=== PATIENT | female | born 1970 | race Caucasian/White ===

== ENCOUNTER 2023-12-19 09:03 | Inpatient (IN) | payer BC, MEDICAID ==
[~2023-12-19] VITALS: Ht 162.6 cm; Wt 75.0 kg
[2023-12-19] MEDS ORDERED: octreotide inj. 1,250 MCG in normal saline 250ml IV soln 243.75 ML IV SCH (09:50)
[2023-12-19] MEDS ORDERED: octreotide inj. 1,250 MCG in normal saline 250ml IV soln 250 ML IV ONE (09:50)
[2023-12-19] MEDS ORDERED: pantoprazole 40mg IV 80 MG in normal saline 100ml IV soln 100 ML IV ONE (09:50)
[2023-12-19] MEDS: octreotide inj. 500 MCG in normal saline 100ml IV soln 97.5 ML IV SCH (09:55)
[2023-12-19 09:57] LABS: BASOPHILS # (AUTO) 0.1 X10'3 (0-0.2); BASOPHILS % (AUTO) 0.5 % (0-1); EOSINOPHILS # (AUTO) 0.1 X10'3 (0-0.9); EOSINOPHILS % (AUTO) 0.5 % (0-6); HEMATOCRIT 31.9 % (35.0-45.0); HEMOGLOBIN 10.5 g/dl (12.0-16.0); LYMPHOCYTES # (AUTO) 2.1 X10'3 (1.1-4.8); LYMPHOCYTES % (AUTO) 12.4 % (21-51); MEAN CORPUSCULAR HEMOGLOBIN 33.5 PG (27.0-31.0); MEAN CORPUSCULAR HGB CONC 32.9 g/dL (33.0-36.5); MEAN CORPUSCULAR VOLUME 101.9 FL (78-98); MEAN PLATELET VOLUME 10.5 FL (7.4-10.4); MONOCYTES # (AUTO) 1.4 X10'3 (0-0.9); MONOCYTES % (AUTO) 8.5 % (2-12); NEUTROPHILS # (AUTO) 13.2 X10'3 (1.8-7.7); NEUTROPHILS % (AUTO) 78.1 % (42-75); PLATELET COUNT 228 X10'3 (140-440); RED BLOOD COUNT 3.13 X10'6 (4.20-5.60); RED CELL DISTRIBUTION WIDTH 19.5 % (11.5-14.5); WHITE BLOOD COUNT 16.9 X10'3 (4.5-11.0)
[2023-12-19] MEDS ORDERED: iohexol 300mg/ml 100ml inj. ONE (10:13)
[2023-12-19] MEDS: normal saline 1000ml 1,000 ML IV ONE (10:16)
[2023-12-19] MEDS: pantoprazole 40MG/NS 100ML BAG 100 ML IV SCH ×2 (10:26→20:09)
[2023-12-19 10:29] LABS: ALANINE AMINOTRANSFERASE 44 U/L (12-78); ALBUMIN 2.3 G/DL (3.4-5.0); ALBUMIN/GLOBULIN RATIO 0.4 (1.1-1.5); ALKALINE PHOSPHATASE 287 IU/L (46-116); ANION GAP 13 (8-16); ASPARTATE AMINO TRANSFERASE 105 U/L (10-37); BILIRUBIN,TOTAL 3.9 MG/DL (0.1-1.0); BLOOD UREA NITROGEN 4 MG/DL (7-18); BUN/CREATININE RATIO 2.6 (10.0-20.0); CALCIUM 7.3 MG/DL (8.5-10.1); CHLORIDE 88 MMOL/L (99-107); CREATININE 1.53 MG/DL (0.40-0.90); GLUCOSE 165 MG/DL (70-104); LIPASE 19 U/L (16-77); SODIUM 124 MMOL/L (135-145); TOTAL CARBON DIOXIDE 22.8 MMOL/L (24-32); TOTAL PROTEIN 8.5 G/DL (6.4-8.2); eCRCL 38 ML/MIN; eGFR 36 ML/MIN
[2023-12-19 10:32] LABS: POTASSIUM 2.4 MMOL/L (3.5-5.1)
[2023-12-19 11:04] LABS: URINE HCG NEGATIVE (NEG)
[2023-12-19 11:04] LABS: OCCULT BLOOD STOOL NEGATIVE (Neg)
[2023-12-19 11:06] LABS: BILIRUBIN,URINE SMALL (Neg); CLARITY,URINE SLIGHTLY CLOUDY (Clear); COLOR,URINE YELLOW (Yellow); GLUCOSE, URINE NEGATIVE (Neg); KETONES,URINE NEGATIVE (Neg); LEUKOCYTE ESTERASE ,URINE MODERATE (Neg); NITRITES, URINE POSITIVE (Neg); OCCULT BLOOD,URINE TRACE-INTACT (Neg); PROTEIN,URINE NEGATIVE (Neg)
[2023-12-19 11:10] LABS: UA COLLECTION TYPE NON-SPECIFIED
[2023-12-19 11:15] LABS: BACTERIA,URINE 4+ /HPF (Neg); MUCUS STRANDS NONE SEEN /LPF (Neg); RBC,URINE 0-2 /HPF (0-2); SQUAMOUS EPITHELIAL CELL,UR MANY /LPF (FEW)
[2023-12-19 11:16] LABS: WBC,URINE 30-50 /HPF (0-4)
[2023-12-19] MEDS: thiamine 100mg tablet PO ONE (11:39)
[2023-12-19] MEDS: folic acid 1mg tablet PO ONE (11:39)
[2023-12-19] MEDS: potassium Cl 20 mEq SR tablet PO ONE (11:39)
[2023-12-19 11:41] LABS: MAGNESIUM 0.3 MG/DL (1.5-2.4)
[2023-12-19] MEDS: pantoprazole 40 MG vial IV ONE (11:41)
[2023-12-19] MEDS: CefTRIAXone 2gm/D5W 50ml BAG 50 ML IV ONE ×2 (11:54→12:24)
[2023-12-19] MEDS: cyanocobalamin 1,000 mcg/ml inj IM ONE (12:02)
[2023-12-19] MEDS: LORazepam 2 mg/ml vial IV ONE (12:32)
[2023-12-19] MEDS: magnesium sulf-water 4G/100mL 100 ML IV ONE (12:32)
[2023-12-19] MEDS ORDERED: potassium Cl 20 mEq SR tablet PO PRN (13:05)
[2023-12-19] MEDS ORDERED: morphine 2 MG/ML inj. syringe IV PRN ×2 (13:05)
[2023-12-19] MEDS ORDERED: potassium Cl 40MEQ/1/2NS 520ml 520 ML IV PRN (13:05)
[2023-12-19] MEDS ORDERED: magnesium Cl slow-release 64mg tablet PO PRN (13:05)
[2023-12-19] MEDS ORDERED: magnesium sulf-water 4G/100mL 100 ML IV PRN (13:05)
[2023-12-19] MEDS ORDERED: haloperidol lactate 5mg/ml inj IM PRN (13:20)
[2023-12-19] MEDS ORDERED: haloperidol 5mg tablet PO PRN (13:20)
[2023-12-19] MEDS: normal saline 1000ml 1,000 ML IV SCH (14:33)
[2023-12-19] MEDS: potassium Cl 20 mEq SR tablet PO PRN (16:38)
[2023-12-19] MEDS: acetaminophen 325mg tablet PO PRN (16:38)
[2023-12-19] MEDS: normal saline 500ml IV soln 500 ML IV ONE (16:39)
[2023-12-19] MEDS: atenolol 25mg tablet PO ONE (16:47)
[2023-12-19] MEDS: LORazepam 2 mg/ml vial IV PRN (16:48)
[2023-12-19] MEDS ORDERED: PANT20TA18 PO (17:09)
[2023-12-19] MEDS ORDERED: METF-438 PO (17:09)
[2023-12-19] MEDS ORDERED: INSU100I31 SQ (17:09)
[2023-12-19] MEDS ORDERED: PREG75CA76 PO (17:09)
[2023-12-19] MEDS ORDERED: DEXTROSE 15 GM of carb/4 tabs (each vial/BOTTLE has 4 tablets) PO PRN ×2 (18:55)
[2023-12-19] MEDS ORDERED: glucagon, human recombinant 1mg kit SUBCUT PRN (18:55)
[2023-12-19] MEDS: diltiazem-NS 100mg/100ml 100 ML IV SCH (18:55)
[2023-12-19] MEDS ORDERED: dextrose 50%-water 50ml dispensing syringe IV PRN ×2 (18:55)
[2023-12-19] MEDS: INSULIN LISPRO 100 UNIT/ML INSULN.PEN MULTI-DOSE SQ SCH (20:21)
[2023-12-19 22:30] VITALS: BP 128/80; PULSE 96; RESP 14; TEMP 97.1; O2SAT 98
[2023-12-20] VITALS (7 sets, daily range): BP systolic 92–127; BP diastolic 53–86; PULSE 88–100; RESP 16–24; TEMP 96.6–99.6; O2SAT 20–98
[2023-12-20 06:10] LABS: BASOPHILS % (AUTO) 0.3 % (0-1); EOSINOPHILS # (AUTO) 0.2 X10'3 (0-0.9); EOSINOPHILS % (AUTO) 1.1 % (0-6); HEMATOCRIT 28.6 % (35.0-45.0); HEMOGLOBIN 9.3 g/dl (12.0-16.0); LYMPHOCYTES # (AUTO) 1.3 X10'3 (1.1-4.8); LYMPHOCYTES % (AUTO) 9.5 % (21-51); MEAN CORPUSCULAR HEMOGLOBIN 33.4 PG (27.0-31.0); MEAN CORPUSCULAR HGB CONC 32.4 g/dL (33.0-36.5); MEAN CORPUSCULAR VOLUME 103.3 FL (78-98); MEAN PLATELET VOLUME 10.5 FL (7.4-10.4); MONOCYTES # (AUTO) 1.1 X10'3 (0-0.9); MONOCYTES % (AUTO) 7.8 % (2-12); NEUTROPHILS # (AUTO) 11.5 X10'3 (1.8-7.7); NEUTROPHILS % (AUTO) 81.3 % (42-75); PLATELET COUNT 204 X10'3 (140-440); RED BLOOD COUNT 2.77 X10'6 (4.20-5.60); RED CELL DISTRIBUTION WIDTH 19.6 % (11.5-14.5); WHITE BLOOD COUNT 14.2 X10'3 (4.5-11.0)
[2023-12-20 06:11] LABS: INR 1.5 INR; PROTHROMBIN TIME 15.1 SECONDS (9.0-12.0)
[2023-12-20 06:19] LABS: ALANINE AMINOTRANSFERASE 37 U/L (12-78); ALBUMIN 1.8 G/DL (3.4-5.0); ALBUMIN/GLOBULIN RATIO 0.4 (1.1-1.5); ALKALINE PHOSPHATASE 218 IU/L (46-116); ANION GAP 10 (8-16); ASPARTATE AMINO TRANSFERASE 110 U/L (10-37); BILIRUBIN,TOTAL 3.3 MG/DL (0.1-1.0); BLOOD UREA NITROGEN 4 MG/DL (7-18); BUN/CREATININE RATIO 4.3 (10.0-20.0); CALCIUM 6.8 MG/DL (8.5-10.1); CHLORIDE 103 MMOL/L (99-107); CREATININE 0.92 MG/DL (0.40-0.90); GLUCOSE 108 MG/DL (70-104); MAGNESIUM 1.3 MG/DL (1.5-2.4); SODIUM 137 MMOL/L (135-145); TOTAL CARBON DIOXIDE 24.4 MMOL/L (24-32); TOTAL PROTEIN 6.8 G/DL (6.4-8.2); eCRCL 62 ML/MIN; eGFR 64 ML/MIN
[2023-12-20 06:58] LABS: OCCULT BLOOD STOOL NEGATIVE (Neg)
[2023-12-20 08:24] LABS: PLATELET ESTIMATE NORMAL
[2023-12-20 08:25] LABS: ANISOCYTOSIS 2+; POLYCHROMASIA FEW
[2023-12-20 08:26] LABS: TARGET CELLS 2+
[2023-12-20 08:33] LABS: C DIFF ANTIGEN NEGATIVE (NEGATIVE); C DIFF SPECIMEN=DIARRHEA? ACCEPTABLE; C DIFFICILE TOXINS A&B NEGATIVE (Neg)
[2023-12-20] MEDS: CefTRIAXone 2gm/D5W 50ml BAG 50 ML IV SCH (08:49)
[2023-12-20] MEDS: atenolol 25mg tablet PO SCH (08:50)
[2023-12-20] MEDS: magnesium sulf-water 2g/50mL 50 ML IV PRN (09:53)
[2023-12-20] MEDS: sodium phosphate inj. 30 MMOL in dextrose 5%-water 250 ML IV ONE (12:07)
[2023-12-20 15:18] LABS: BASOPHILS # (AUTO) 0.1 X10'3 (0-0.2); BASOPHILS % (AUTO) 0.6 % (0-1); EOSINOPHILS # (AUTO) 0.2 X10'3 (0-0.9); EOSINOPHILS % (AUTO) 1.1 % (0-6); HEMATOCRIT 28.6 % (35.0-45.0); HEMOGLOBIN 9.3 g/dl (12.0-16.0); LYMPHOCYTES # (AUTO) 1.3 X10'3 (1.1-4.8); LYMPHOCYTES % (AUTO) 9.7 % (21-51); MEAN CORPUSCULAR HEMOGLOBIN 33.6 PG (27.0-31.0); MEAN CORPUSCULAR HGB CONC 32.4 g/dL (33.0-36.5); MEAN CORPUSCULAR VOLUME 103.7 FL (78-98); MEAN PLATELET VOLUME 10.2 FL (7.4-10.4); MONOCYTES # (AUTO) 0.9 X10'3 (0-0.9); NEUTROPHILS % (AUTO) 81.6 % (42-75); PLATELET COUNT 219 X10'3 (140-440); RED BLOOD COUNT 2.76 X10'6 (4.20-5.60); RED CELL DISTRIBUTION WIDTH 19.5 % (11.5-14.5); WHITE BLOOD COUNT 13.5 X10'3 (4.5-11.0)
[2023-12-20 15:46] LABS: ANISOCYTOSIS 2+; PLATELET ESTIMATE NORMAL; POLYCHROMASIA FEW; TARGET CELLS 1+; TOTAL CELLS COUNTED 100
[2023-12-20] MEDS: loperamide 2mg capsule PO PRN (17:21)
[2023-12-20 18:30] LABS: OCCULT BLOOD STOOL NEGATIVE (Neg)
[2023-12-20] MEDS: heparin, porcine 5000 units/ml vial SQ SCH (21:57)
[2023-12-20] MEDS: ciprofloxacin lact 400MG/200ML 200 ML IV SCH (22:28)
[2023-12-20] MEDS: metroNIDAZOLE-Flagyl 500mg/NS 100 ML IV SCH (23:55)
[2023-12-21] VITALS (7 sets, daily range): BP systolic 80–120; BP diastolic 48–81; PULSE 88–124; RESP 14–27; TEMP 97.5–103.9; O2SAT 95–98
[2023-12-21 06:17] LABS: INR 1.5 INR; PROTHROMBIN TIME 15.6 SECONDS (9.0-12.0)
[2023-12-21 06:19] LABS: ALANINE AMINOTRANSFERASE 36 U/L (12-78); ALBUMIN 1.6 G/DL (3.4-5.0); ALBUMIN/GLOBULIN RATIO 0.3 (1.1-1.5); ALKALINE PHOSPHATASE 204 IU/L (46-116); ANION GAP 11 (8-16); ASPARTATE AMINO TRANSFERASE 90 U/L (10-37); BILIRUBIN,TOTAL 2.9 MG/DL (0.1-1.0); BLOOD UREA NITROGEN 4 MG/DL (7-18); BUN/CREATININE RATIO 4.7 (10.0-20.0); CALCIUM 6.4 MG/DL (8.5-10.1); CHLORIDE 105 MMOL/L (99-107); CREATININE 0.85 MG/DL (0.40-0.90); GLUCOSE 93 MG/DL (70-104); MAGNESIUM 1.4 MG/DL (1.5-2.4); PHOSPHORUS 3.2 MG/DL (2.3-4.5); POTASSIUM 4.1 MMOL/L (3.5-5.1); SODIUM 139 MMOL/L (135-145); TOTAL CARBON DIOXIDE 22.9 MMOL/L (24-32); TOTAL PROTEIN 6.5 G/DL (6.4-8.2); eCRCL 68 ML/MIN; eGFR 71 ML/MIN
[2023-12-21 06:24] LABS: BASOPHILS # (AUTO) 0.1 X10'3 (0-0.2); BASOPHILS % (AUTO) 0.6 % (0-1); EOSINOPHILS # (AUTO) 0.2 X10'3 (0-0.9); EOSINOPHILS % (AUTO) 1.5 % (0-6); HEMATOCRIT 29.1 % (35.0-45.0); HEMOGLOBIN 9.3 g/dl (12.0-16.0); LYMPHOCYTES # (AUTO) 1.1 X10'3 (1.1-4.8); LYMPHOCYTES % (AUTO) 8.5 % (21-51); MEAN CORPUSCULAR HEMOGLOBIN 33.9 PG (27.0-31.0); MEAN PLATELET VOLUME 10.3 FL (7.4-10.4); MONOCYTES # (AUTO) 0.7 X10'3 (0-0.9); MONOCYTES % (AUTO) 5.4 % (2-12); NEUTROPHILS # (AUTO) 10.9 X10'3 (1.8-7.7); PLATELET COUNT 207 X10'3 (140-440); RED BLOOD COUNT 2.74 X10'6 (4.20-5.60); RED CELL DISTRIBUTION WIDTH 20.1 % (11.5-14.5)
[2023-12-21 07:27] LABS: HBSAG SCREEN Negative (Negative); HEP B CORE AB, IGM Negative (Negative); HEP B CORE AB, TOT Negative (Negative)
[2023-12-21] MEDS ORDERED: calcium chloride 100 MG/1 ML inj IV ONE (09:55)
[2023-12-21] MEDS: calcium chloride 1,000 MG in NS 100ml IV soln (110ml) IV ONE (13:12)
[2023-12-21] MEDS: lactulose 20gm/30ml cup PO SCH (14:41)
[2023-12-21 15:30] LABS: BASOPHILS # (AUTO) 0.1 X10'3 (0-0.2); BASOPHILS % (AUTO) 0.4 % (0-1); EOSINOPHILS # (AUTO) 0.1 X10'3 (0-0.9); HEMOGLOBIN 8.7 g/dl (12.0-16.0); MEAN CORPUSCULAR HEMOGLOBIN 33.6 PG (27.0-31.0); MEAN CORPUSCULAR HGB CONC 32.2 g/dL (33.0-36.5); WHITE BLOOD COUNT 14.6 X10'3 (4.5-11.0)
[2023-12-21 15:31] LABS: EOSINOPHILS % (AUTO) 0.7 % (0-6); LYMPHOCYTES % (AUTO) 13.7 % (21-51); MEAN CORPUSCULAR VOLUME 104.4 FL (78-98); MEAN PLATELET VOLUME 9.9 FL (7.4-10.4); MONOCYTES # (AUTO) 1.1 X10'3 (0-0.9); MONOCYTES % (AUTO) 7.5 % (2-12); NEUTROPHILS # (AUTO) 11.3 X10'3 (1.8-7.7); NEUTROPHILS % (AUTO) 77.7 % (42-75); PLATELET COUNT 210 X10'3 (140-440); RED BLOOD COUNT 2.58 X10'6 (4.20-5.60); RED CELL DISTRIBUTION WIDTH 20.2 % (11.5-14.5)
[2023-12-21 15:50] LABS: BILIRUBIN,URINE SMALL (Neg); CLARITY,URINE CLEAR (Clear); COLOR,URINE YELLOW (Yellow); GLUCOSE, URINE NEGATIVE (Neg); KETONES,URINE TRACE mg/dl (Neg); LEUKOCYTE ESTERASE ,URINE TRACE (Neg); NITRITES, URINE NEGATIVE (Neg); OCCULT BLOOD,URINE TRACE-INTACT (Neg); PROTEIN,URINE NEGATIVE (Neg); UROBILINOGEN,URINE 0.2 E.U/dL (0.2-1.0)
[2023-12-21 15:54] LABS: ANISOCYTOSIS 3+; PLATELET ESTIMATE NORMAL; TARGET CELLS 1+; TOTAL CELLS COUNTED 100
[2023-12-21 15:55] LABS: UA COLLECTION TYPE NON-SPECIFIED
[2023-12-21 15:56] LABS: BACTERIA,URINE NONE SEEN /HPF (Neg); WBC,URINE 0-4 /HPF (0-4)
[2023-12-21 15:57] LABS: MUCUS STRANDS FEW /LPF (Neg); RBC,URINE 0-2 /HPF (0-2); SQUAMOUS EPITHELIAL CELL,UR FEW /LPF (FEW); STARCH,URINE FEW /HPF (NEGATIVE)
[2023-12-21] MEDS: pregabalin 75mg capsule PO SCH (21:36)
[2023-12-22] VITALS (10 sets, daily range): BP systolic 87–134; BP diastolic 49–68; PULSE 94–117; RESP 20–29; TEMP 96.8–99.1; O2SAT 95–98
[2023-12-22] MEDS: normal saline 1000ml 1,000 ML IV ONE (00:28)
[2023-12-22] MEDS: pantoprazole 40 MG vial IV ONE (00:39)
[2023-12-22 07:16] LABS: BASOPHILS # (AUTO) 0.2 X10'3 (0-0.2); BASOPHILS % (AUTO) 1.1 % (0-1); EOSINOPHILS # (AUTO) 0.2 X10'3 (0-0.9); EOSINOPHILS % (AUTO) 1.2 % (0-6); HEMATOCRIT 28.3 % (35.0-45.0); HEMOGLOBIN 8.8 g/dl (12.0-16.0); LYMPHOCYTES # (AUTO) 1.4 X10'3 (1.1-4.8); LYMPHOCYTES % (AUTO) 9.5 % (21-51); MEAN CORPUSCULAR HEMOGLOBIN 33.5 PG (27.0-31.0); MEAN CORPUSCULAR HGB CONC 31.2 g/dL (33.0-36.5); MEAN CORPUSCULAR VOLUME 107.2 FL (78-98); MEAN PLATELET VOLUME 10.7 FL (7.4-10.4); MONOCYTES # (AUTO) 0.9 X10'3 (0-0.9); MONOCYTES % (AUTO) 6.5 % (2-12); NEUTROPHILS # (AUTO) 11.7 X10'3 (1.8-7.7); NEUTROPHILS % (AUTO) 81.7 % (42-75); PLATELET COUNT 207 X10'3 (140-440); RED BLOOD COUNT 2.64 X10'6 (4.20-5.60); WHITE BLOOD COUNT 14.3 X10'3 (4.5-11.0)
[2023-12-22 07:48] LABS: ALANINE AMINOTRANSFERASE 46 U/L (12-78); ALBUMIN 1.4 G/DL (3.4-5.0); ALKALINE PHOSPHATASE 176 IU/L (46-116); ANION GAP 16 (8-16); ASPARTATE AMINO TRANSFERASE 235 U/L (10-37); BILIRUBIN,TOTAL 4.1 MG/DL (0.1-1.0); BLOOD UREA NITROGEN 8 MG/DL (7-18); BUN/CREATININE RATIO 7.8 (10.0-20.0); CALCIUM 6.6 MG/DL (8.5-10.1); CHLORIDE 110 MMOL/L (99-107); CREATININE 1.02 MG/DL (0.40-0.90); GLUCOSE 130 MG/DL (70-104); POTASSIUM 3.7 MMOL/L (3.5-5.1); SODIUM 141 MMOL/L (135-145); eCRCL 56 ML/MIN; eGFR 57 ML/MIN
[2023-12-22 07:50] LABS: ALBUMIN/GLOBULIN RATIO 0.3 (1.1-1.5); TOTAL PROTEIN 5.9 G/DL (6.4-8.2)
[2023-12-22 07:53] LABS: TOTAL CARBON DIOXIDE 14.8 MMOL/L (24-32)
[2023-12-22 07:57] LABS: TOTAL CELLS COUNTED 100
[2023-12-22 07:58] LABS: ANISOCYTOSIS 2+; HYPOCHROMASIA 1+; LARGE PLATELETS FEW; PLATELET ESTIMATE NORMAL; POLYCHROMASIA 1+; ROULEAUX 1+; TARGET CELLS 2+
[2023-12-22] MEDS: pantoprazole 40mg Tablet.DR PO SCH (08:32)
[2023-12-22 09:03] LABS: ABG BASE EXCESS -8.9 mmol/L (-2.0-3.0); ABG OXYGEN SATURATION 95.7 % (94.0-98.0); ABG PCO2 (T) 21.3 mmHg (32.0-45.0); ABG PH (T) 7.433 (7.350-7.450); ABG PO2 (T) 77.2 mmHg (83.0-108.0); ALLEN'S TEST POSITIVE; FCOHb 0.7 % (0.5-1.5); FHHb 4.3 % (0.0-5.0); FMetHb 0.3 % (0.0-1.5); FO2Hb 94.7 % (94.0-98.0); MODE ROOM AIR; PATIENT TEMPERATURE 36.5; TOTAL HEMOGLOBIN 9.2 G/dl (12.0-16.0)
[2023-12-22] MEDS: folic acid 1mg tablet PO SCH (10:20)
[2023-12-22] MEDS: sodium bicarbonate (8.4%) inj. 100 MEQ in dextrose 5%-water 1,000 ML IV SCH (10:23)
[2023-12-22] MEDS: nicotine 21mg patch - 24 hr TD SCH (14:31)
[2023-12-22 15:21] LABS: EOSINOPHILS # (AUTO) 0.1 X10'3 (0-0.9); MEAN PLATELET VOLUME 9.9 FL (7.4-10.4); PLATELET COUNT 222 X10'3 (140-440); RED BLOOD COUNT 2.52 X10'6 (4.20-5.60); WHITE BLOOD COUNT 14.1 X10'3 (4.5-11.0)
[2023-12-22 15:22] LABS: BASOPHILS # (AUTO) 0.1 X10'3 (0-0.2); HEMOGLOBIN 8.7 g/dl (12.0-16.0); LYMPHOCYTES # (AUTO) 1.6 X10'3 (1.1-4.8); LYMPHOCYTES % (AUTO) 11.1 % (21-51); MEAN CORPUSCULAR HEMOGLOBIN 34.5 PG (27.0-31.0); MEAN CORPUSCULAR HGB CONC 32.2 g/dL (33.0-36.5); MEAN CORPUSCULAR VOLUME 107.1 FL (78-98); MONOCYTES # (AUTO) 0.8 X10'3 (0-0.9); MONOCYTES % (AUTO) 5.9 % (2-12); NEUTROPHILS # (AUTO) 11.4 X10'3 (1.8-7.7); RED CELL DISTRIBUTION WIDTH 19.8 % (11.5-14.5)
[2023-12-22 15:29] LABS: ALANINE AMINOTRANSFERASE 50 U/L (12-78); ALBUMIN 1.3 G/DL (3.4-5.0); ALBUMIN/GLOBULIN RATIO 0.3 (1.1-1.5); ALKALINE PHOSPHATASE 195 IU/L (46-116); ANION GAP 10 (8-16); ASPARTATE AMINO TRANSFERASE 248 U/L (10-37); BILIRUBIN,TOTAL 4.1 MG/DL (0.1-1.0); BLOOD UREA NITROGEN 7 MG/DL (7-18); BUN/CREATININE RATIO 6.6 (10.0-20.0); CALCIUM 6.2 MG/DL (8.5-10.1); CHLORIDE 106 MMOL/L (99-107); CREATININE 1.06 MG/DL (0.40-0.90); GLUCOSE 262 MG/DL (70-104); POTASSIUM 3.3 MMOL/L (3.5-5.1); SODIUM 136 MMOL/L (135-145); TOTAL CARBON DIOXIDE 20.4 MMOL/L (24-32); TOTAL PROTEIN 5.7 G/DL (6.4-8.2); eCRCL 54 ML/MIN; eGFR 55 ML/MIN
[2023-12-22] MEDS ORDERED: potassium Cl 20 mEq SR tablet PO PRN (17:30)
[2023-12-22] MEDS ORDERED: magnesium sulf-water 2g/50mL 50 ML IV PRN (17:30)
[2023-12-22] MEDS: thiamine 100mg tablet PO SCH (19:54)
[2023-12-22] MEDS: K and/or MAG REPLACEMENT MC SCH (20:00)
[2023-12-22] MEDS: potassium Cl 20 mEq SR tablet PO PRN (21:36)
[2023-12-22] MEDS: HYDROcodone/acetaminophen 10/325mg tab PO PRN (23:06)
[2023-12-23] VITALS (11 sets, daily range): BP systolic 91–100; BP diastolic 51–62; PULSE 74–118; RESP 14–24; TEMP 97–101; O2SAT 95–100
[2023-12-23] MEDS: ipratropium/albuterol 3ml nebule NEB PRN (04:35)
[2023-12-23 06:34] LABS: BASOPHILS # (AUTO) 0.1 X10'3 (0-0.2); BASOPHILS % (AUTO) 0.9 % (0-1); EOSINOPHILS # (AUTO) 0.1 X10'3 (0-0.9); EOSINOPHILS % (AUTO) 0.5 % (0-6); HEMOGLOBIN 8.8 g/dl (12.0-16.0); LYMPHOCYTES # (AUTO) 2.3 X10'3 (1.1-4.8); LYMPHOCYTES % (AUTO) 16.6 % (21-51); MEAN CORPUSCULAR HEMOGLOBIN 33.6 PG (27.0-31.0); MEAN CORPUSCULAR HGB CONC 31.6 g/dL (33.0-36.5); MEAN CORPUSCULAR VOLUME 106.3 FL (78-98); MONOCYTES # (AUTO) 0.8 X10'3 (0-0.9); MONOCYTES % (AUTO) 5.8 % (2-12); NEUTROPHILS # (AUTO) 10.6 X10'3 (1.8-7.7); NEUTROPHILS % (AUTO) 76.2 % (42-75); PLATELET COUNT 228 X10'3 (140-440); RED BLOOD COUNT 2.63 X10'6 (4.20-5.60); RED CELL DISTRIBUTION WIDTH 19.7 % (11.5-14.5); WHITE BLOOD COUNT 13.9 X10'3 (4.5-11.0)
[2023-12-23 07:08] LABS: ALANINE AMINOTRANSFERASE 47 U/L (12-78); ALBUMIN 1.3 G/DL (3.4-5.0); ALKALINE PHOSPHATASE 202 IU/L (46-116); ANION GAP 11 (8-16); ASPARTATE AMINO TRANSFERASE 201 U/L (10-37); BILIRUBIN,TOTAL 3.9 MG/DL (0.1-1.0); BLOOD UREA NITROGEN 5 MG/DL (7-18); BUN/CREATININE RATIO 5.4 (10.0-20.0); CHLORIDE 105 MMOL/L (99-107); CREATININE 0.93 MG/DL (0.40-0.90); GLUCOSE 288 MG/DL (70-104); POTASSIUM 3.1 MMOL/L (3.5-5.1); SODIUM 137 MMOL/L (135-145); eCRCL 62 ML/MIN; eGFR 64 ML/MIN
[2023-12-23 07:09] LABS: ALBUMIN/GLOBULIN RATIO 0.3 (1.1-1.5); PHOSPHORUS 1.8 MG/DL (2.3-4.5); TOTAL PROTEIN 5.5 G/DL (6.4-8.2)
[2023-12-23 07:13] LABS: CALCIUM 5.8 MG/DL (8.5-10.1); MAGNESIUM 0.9 MG/DL (1.5-2.4)
[2023-12-23] MEDS ORDERED: calcium chloride 100 MG/1 ML inj IV ONE (07:55)
[2023-12-23] MEDS: lactulose 20gm/30ml cup PO SCH (08:00)
[2023-12-23] MEDS: multivitamins, therapeutics tablet PO SCH (09:16)
[2023-12-23] MEDS ORDERED: INSULIN LISPRO 100 UNIT/ML INSULN.PEN MULTI-DOSE SQ SCH (11:05)
[2023-12-23] MEDS: magnesium sulf-water 4G/100mL 100 ML IV PRN (14:02)
[2023-12-23] MEDS: CALCIUM GLUC 1gm/50ml NACL,iso 50 ML IV ONE (16:30)
[2023-12-23] MEDS: acetaminophen 325mg tablet PO PRN (16:48)
[2023-12-23 17:41] LABS: BASOPHILS # (AUTO) 0.1 X10'3 (0-0.2); BASOPHILS % (AUTO) 0.8 % (0-1); EOSINOPHILS # (AUTO) 0.1 X10'3 (0-0.9); EOSINOPHILS % (AUTO) 0.7 % (0-6); HEMATOCRIT 27.7 % (35.0-45.0); HEMOGLOBIN 8.8 g/dl (12.0-16.0); LYMPHOCYTES # (AUTO) 1.3 X10'3 (1.1-4.8); LYMPHOCYTES % (AUTO) 11.4 % (21-51); MEAN CORPUSCULAR HEMOGLOBIN 33.7 PG (27.0-31.0); MEAN CORPUSCULAR HGB CONC 31.8 g/dL (33.0-36.5); MEAN PLATELET VOLUME 9.8 FL (7.4-10.4); MONOCYTES # (AUTO) 0.7 X10'3 (0-0.9); MONOCYTES % (AUTO) 6.8 % (2-12); NEUTROPHILS # (AUTO) 8.9 X10'3 (1.8-7.7); NEUTROPHILS % (AUTO) 80.3 % (42-75); PLATELET COUNT 235 X10'3 (140-440); RED BLOOD COUNT 2.61 X10'6 (4.20-5.60); RED CELL DISTRIBUTION WIDTH 18.9 % (11.5-14.5)
[2023-12-23 18:13] LABS: ANISOCYTOSIS 2+; PLATELET ESTIMATE NORMAL
[2023-12-23 18:14] LABS: POLYCHROMASIA FEW; TARGET CELLS 1+
[2023-12-23] MEDS: INSULIN LISPRO 100 UNIT/ML INSULN.PEN MULTI-DOSE SQ SCH (21:58)
[2023-12-23] MEDS: sodium phosphate inj. 30 MMOL in dextrose 5%-water 250 ML IV ONE (22:27)
[2023-12-24] VITALS (9 sets, daily range): BP systolic 82–97; BP diastolic 52–65; PULSE 69–128; RESP 12–24; TEMP 97.3–100.1; O2SAT 95–98
[2023-12-24] MEDS: magnesium sulf-water 2g/50mL 50 ML IV ONE (09:13)
[2023-12-24] MEDS: CALCIUM GLUC 1gm/50ml NACL,iso 50 ML IV ONE (09:14)
[2023-12-24] MEDS: albuterol 2.5 MG/3 ML nebule NEB PRN (09:41)
[2023-12-24 10:56] LABS: BASOPHILS # (AUTO) 0.1 X10'3 (0-0.2); BASOPHILS % (AUTO) 0.8 % (0-1); EOSINOPHILS # (AUTO) 0.1 X10'3 (0-0.9); EOSINOPHILS % (AUTO) 0.7 % (0-6); HEMATOCRIT 29.2 % (35.0-45.0); HEMOGLOBIN 9.3 g/dl (12.0-16.0); LYMPHOCYTES # (AUTO) 2.4 X10'3 (1.1-4.8); LYMPHOCYTES % (AUTO) 17.7 % (21-51); MEAN CORPUSCULAR HEMOGLOBIN 33.8 PG (27.0-31.0); MEAN CORPUSCULAR VOLUME 105.8 FL (78-98); MEAN PLATELET VOLUME 10.5 FL (7.4-10.4); MONOCYTES # (AUTO) 0.9 X10'3 (0-0.9); MONOCYTES % (AUTO) 6.8 % (2-12); NEUTROPHILS # (AUTO) 9.8 X10'3 (1.8-7.7); PLATELET COUNT 219 X10'3 (140-440); RED BLOOD COUNT 2.76 X10'6 (4.20-5.60); RED CELL DISTRIBUTION WIDTH 18.8 % (11.5-14.5); WHITE BLOOD COUNT 13.3 X10'3 (4.5-11.0)
[2023-12-24 11:33] LABS: ALANINE AMINOTRANSFERASE 36 U/L (12-78); ALBUMIN 1.1 G/DL (3.4-5.0); ALKALINE PHOSPHATASE 201 IU/L (46-116); ANION GAP 12 (8-16); BILIRUBIN,TOTAL 4.1 MG/DL (0.1-1.0); BLOOD UREA NITROGEN 3 MG/DL (7-18); BUN/CREATININE RATIO 4.1 (10.0-20.0); CHLORIDE 98 MMOL/L (99-107); CREATININE 0.74 MG/DL (0.40-0.90); GLUCOSE 273 MG/DL (70-104); MAGNESIUM 1.3 MG/DL (1.5-2.4); SODIUM 130 MMOL/L (135-145); TOTAL CARBON DIOXIDE 20.3 MMOL/L (24-32); eCRCL 78 ML/MIN; eGFR 83 ML/MIN
[2023-12-24 11:34] LABS: CALCIUM 5.8 MG/DL (8.5-10.1); TOTAL CELLS COUNTED 100
[2023-12-24 11:36] LABS: ANISOCYTOSIS 2+; PLATELET ESTIMATE NORMAL; TARGET CELLS FEW
[2023-12-24 11:42] LABS: ALBUMIN/GLOBULIN RATIO 0.3 (1.1-1.5); ASPARTATE AMINO TRANSFERASE 153 U/L (10-37); PHOSPHORUS 2.5 MG/DL (2.3-4.5); POTASSIUM 3.6 MMOL/L (3.5-5.1); TOTAL PROTEIN 5.5 G/DL (6.4-8.2)
[2023-12-24 15:33] LABS: HEMATOCRIT 31.5 % (35.0-45.0); MEAN CORPUSCULAR HEMOGLOBIN 33.4 PG (27.0-31.0); MEAN CORPUSCULAR HGB CONC 31.8 g/dL (33.0-36.5); MEAN CORPUSCULAR VOLUME 105.1 FL (78-98); MEAN PLATELET VOLUME 10.3 FL (7.4-10.4); PLATELET COUNT 230 X10'3 (140-440); RED CELL DISTRIBUTION WIDTH 18.5 % (11.5-14.5); WHITE BLOOD COUNT 14.3 X10'3 (4.5-11.0)
[2023-12-24 16:11] LABS: TOTAL CELLS COUNTED 100
[2023-12-24 16:15] LABS: PLATELET ESTIMATE NORMAL
[2023-12-24 16:16] LABS: ANISOCYTOSIS 2+; POIKILOCYTOSIS 1+
[2023-12-24 16:17] LABS: TARGET CELLS 1+
[2023-12-24 16:18] LABS: CREATINE KINASE 73 U/L (26-192)
[2023-12-24 16:19] LABS: POLYCHROMASIA FEW
[2023-12-24] MEDS: calcium chloride inj. 1,000 MG in normal saline 100ml IV soln 100 ML IV ONE (19:03)
[2023-12-24] MEDS: INSULIN LISPRO 100 UNIT/ML INSULN.PEN MULTI-DOSE SQ SCH (20:38)
[2023-12-24] MEDS: insulin glargine (Lantus) pen - multi-dose SQ SCH (20:40)
[2023-12-25] VITALS (9 sets, daily range): BP systolic 95–104; BP diastolic 51–64; PULSE 96–111; RESP 16–22; TEMP 97–98.6; O2SAT 90–99
[2023-12-25] MEDS: ondansetron/PF 4mg/2ml inj IV PRN (03:02)
[2023-12-25 07:13] LABS: MAGNESIUM 1.6 MG/DL (1.5-2.4); PHOSPHORUS 2.6 MG/DL (2.3-4.5)
[2023-12-25 08:38] LABS: ALANINE AMINOTRANSFERASE 29 U/L (12-78); ALBUMIN/GLOBULIN RATIO 0.2 (1.1-1.5); ALKALINE PHOSPHATASE 193 IU/L (46-116); ANION GAP 8 (8-16); ASPARTATE AMINO TRANSFERASE 125 U/L (10-37); BILIRUBIN,TOTAL 3.5 MG/DL (0.1-1.0); BLOOD UREA NITROGEN 3 MG/DL (7-18); BUN/CREATININE RATIO 3.3 (10.0-20.0); CALCIUM 6.1 MG/DL (8.5-10.1); CHLORIDE 96 MMOL/L (99-107); CREATININE 0.92 MG/DL (0.40-0.90); GLUCOSE 215 MG/DL (70-104); SODIUM 131 MMOL/L (135-145); TOTAL CARBON DIOXIDE 27.1 MMOL/L (24-32); TOTAL PROTEIN 5.2 G/DL (6.4-8.2); eCRCL 62 ML/MIN; eGFR 64 ML/MIN
[2023-12-25 08:47] LABS: POTASSIUM 2.9 MMOL/L (3.5-5.1)
[2023-12-25 08:49] LABS: BASOPHILS % (AUTO) 0.3 % (0-1); EOSINOPHILS % (AUTO) 0.3 % (0-6); HEMATOCRIT 26.1 % (35.0-45.0); HEMOGLOBIN 8.7 g/dl (12.0-16.0); LYMPHOCYTES # (AUTO) 2.1 X10'3 (1.1-4.8); LYMPHOCYTES % (AUTO) 15.1 % (21-51); MEAN CORPUSCULAR HEMOGLOBIN 34.1 PG (27.0-31.0); MEAN CORPUSCULAR HGB CONC 33.1 g/dL (33.0-36.5); MEAN CORPUSCULAR VOLUME 102.9 FL (78-98); MEAN PLATELET VOLUME 9.9 FL (7.4-10.4); MONOCYTES # (AUTO) 0.9 X10'3 (0-0.9); MONOCYTES % (AUTO) 6.7 % (2-12); NEUTROPHILS # (AUTO) 10.9 X10'3 (1.8-7.7); NEUTROPHILS % (AUTO) 77.6 % (42-75); PLATELET COUNT 221 X10'3 (140-440); RED BLOOD COUNT 2.54 X10'6 (4.20-5.60); RED CELL DISTRIBUTION WIDTH 18.3 % (11.5-14.5)
[2023-12-25] MEDS ORDERED: potassium CL 10mEq/100ml bag 100 ML IV SCH (09:00)
[2023-12-25 09:27] LABS: MAGNESIUM 1.3 MG/DL (1.5-2.4)
[2023-12-25 10:00] LABS: ANISOCYTOSIS 2+; PLATELET ESTIMATE NORMAL; TOTAL CELLS COUNTED 100
[2023-12-25 10:01] LABS: TARGET CELLS 1+
[2023-12-25 10:02] LABS: POLYCHROMASIA FEW; STOMATOCYTES FEW
[2023-12-25] MEDS: potassium Cl 40MEQ/1/2NS 520ml 520 ML IV PRN (10:28)
[2023-12-25] MEDS: lactose-reduced food (Ensure Enlive) - 237ml bottle PO SCH (12:54)
[2023-12-25 19:03] LABS: BILIRUBIN,URINE LARGE (Neg); CLARITY,URINE CLOUDY (Clear); COLOR,URINE AMBER (Yellow); GLUCOSE, URINE NEGATIVE (Neg); KETONES,URINE NEGATIVE (Neg); LEUKOCYTE ESTERASE ,URINE NEGATIVE (Neg); OCCULT BLOOD,URINE NEGATIVE (Neg); PH,URINE 5.5 (4.8-8.0); PROTEIN,URINE TRACE mg/dl (Neg)
[2023-12-25 19:14] LABS: NITRITES, URINE NEGATIVE (Neg); UA COLLECTION TYPE NON-SPECIFIED
[2023-12-25 19:28] LABS: SQUAMOUS EPITHELIAL CELL,UR MANY /LPF (FEW)
[2023-12-25 19:30] LABS: BACTERIA,URINE FEW /HPF (Neg); RBC,URINE 0-2 /HPF (0-2); WBC,URINE 0-4 /HPF (0-4); YEAST FEW /HPF (NEGATIVE)
[2023-12-25] MEDS: spironolactone 50 MG tablet PO SCH (20:00)
[2023-12-25] MEDS: magnesium Cl slow-release 64mg tablet PO PRN (22:16)
[2023-12-25] MEDS: magnesium sulf-water 2g/50mL 50 ML IV ONE (22:17)
[2023-12-25] MEDS: calcium gluconate inj. 3 GM in normal saline 100ml IV soln 70 ML IV ONE (23:50)
[2023-12-26] VITALS (11 sets, daily range): BP systolic 101–118; BP diastolic 56–69; PULSE 68–113; RESP 13–20; TEMP 96.8–98.2; O2SAT 89–97
[2023-12-26 06:29] LABS: BASOPHILS # (AUTO) 0.1 X10'3 (0-0.2); BASOPHILS % (AUTO) 0.6 % (0-1); EOSINOPHILS % (AUTO) 0.2 % (0-6); HEMATOCRIT 28.4 % (35.0-45.0); HEMOGLOBIN 9.3 g/dl (12.0-16.0); LYMPHOCYTES # (AUTO) 3.2 X10'3 (1.1-4.8); LYMPHOCYTES % (AUTO) 14.5 % (21-51); MEAN CORPUSCULAR HEMOGLOBIN 33.9 PG (27.0-31.0); MEAN CORPUSCULAR HGB CONC 32.8 g/dL (33.0-36.5); MEAN CORPUSCULAR VOLUME 103.3 FL (78-98); MEAN PLATELET VOLUME 10.5 FL (7.4-10.4); MONOCYTES # (AUTO) 1.6 X10'3 (0-0.9); MONOCYTES % (AUTO) 7.2 % (2-12); NEUTROPHILS # (AUTO) 17.2 X10'3 (1.8-7.7); NEUTROPHILS % (AUTO) 77.5 % (42-75); PLATELET COUNT 244 X10'3 (140-440); RED BLOOD COUNT 2.75 X10'6 (4.20-5.60); WHITE BLOOD COUNT 22.2 X10'3 (4.5-11.0)
[2023-12-26 06:49] LABS: ALANINE AMINOTRANSFERASE 31 U/L (12-78); ALBUMIN 1.2 G/DL (3.4-5.0); ALKALINE PHOSPHATASE 231 IU/L (46-116); ANION GAP 5 (8-16); ASPARTATE AMINO TRANSFERASE 153 U/L (10-37); BILIRUBIN,TOTAL 4.6 MG/DL (0.1-1.0); BLOOD UREA NITROGEN 3 MG/DL (7-18); BUN/CREATININE RATIO 3.2 (10.0-20.0); CALCIUM 7.2 MG/DL (8.5-10.1); CHLORIDE 97 MMOL/L (99-107); CREATININE 0.94 MG/DL (0.40-0.90); GLUCOSE 133 MG/DL (70-104); POTASSIUM 4.1 MMOL/L (3.5-5.1); SODIUM 129 MMOL/L (135-145); TOTAL CARBON DIOXIDE 26.7 MMOL/L (24-32); eCRCL 61 ML/MIN; eGFR 63 ML/MIN
[2023-12-26 06:51] LABS: ALBUMIN/GLOBULIN RATIO 0.3 (1.1-1.5); PHOSPHORUS 2.7 MG/DL (2.3-4.5); TOTAL PROTEIN 5.8 G/DL (6.4-8.2)
[2023-12-26] MEDS ORDERED: calcium gluconate inj. 3 GM in normal saline 100ml IV soln 100 ML IV ONE (08:35)
[2023-12-26 10:28] LABS: OSMOLALITY 266 MOSM/K (280-300)
[2023-12-26] MEDS ORDERED: furosemide 40mg/4ml inj IV ONE (11:50)
[2023-12-26] MEDS: calcium chloride 1,000 MG in NS 100ml IV soln (110ml) IV ONE (12:35)
[2023-12-26] MEDS: albumin (human) 25% 100 ML IV solution IV ONE (14:23)
[2023-12-26] MEDS: furosemide 40mg/4ml inj IV ONE (19:03)
[2023-12-26] MEDS: calcium carbonate 500mg chew tablet PO ONE (21:35)
[2023-12-27] VITALS (9 sets, daily range): BP systolic 90–111; BP diastolic 50–64; PULSE 68–103; RESP 15–19; TEMP 97.6–98.6; O2SAT 89–100
[2023-12-27 07:46] LABS: BASOPHILS # (AUTO) 0.1 X10'3 (0-0.2); BASOPHILS % (AUTO) 0.2 % (0-1); EOSINOPHILS % (AUTO) 0.2 % (0-6); HEMATOCRIT 26.7 % (35.0-45.0); HEMOGLOBIN 8.7 g/dl (12.0-16.0); LYMPHOCYTES # (AUTO) 2.8 X10'3 (1.1-4.8); LYMPHOCYTES % (AUTO) 12.7 % (21-51); MEAN CORPUSCULAR HEMOGLOBIN 33.5 PG (27.0-31.0); MEAN CORPUSCULAR HGB CONC 32.5 g/dL (33.0-36.5); MEAN PLATELET VOLUME 10.7 FL (7.4-10.4); MONOCYTES # (AUTO) 1.1 X10'3 (0-0.9); MONOCYTES % (AUTO) 4.8 % (2-12); NEUTROPHILS % (AUTO) 82.1 % (42-75); PLATELET COUNT 254 X10'3 (140-440); RED BLOOD COUNT 2.59 X10'6 (4.20-5.60); RED CELL DISTRIBUTION WIDTH 17.8 % (11.5-14.5)
[2023-12-27 08:02] LABS: ALANINE AMINOTRANSFERASE 26 U/L (12-78); ALBUMIN 1.5 G/DL (3.4-5.0); ALKALINE PHOSPHATASE 240 IU/L (46-116); ANION GAP 7 (8-16); ASPARTATE AMINO TRANSFERASE 152 U/L (10-37); BILIRUBIN,TOTAL 4.8 MG/DL (0.1-1.0); BLOOD UREA NITROGEN 5 MG/DL (7-18); BUN/CREATININE RATIO 4.7 (10.0-20.0); CALCIUM 7.6 MG/DL (8.5-10.1); CHLORIDE 97 MMOL/L (99-107); CREATININE 1.07 MG/DL (0.40-0.90); GLUCOSE 136 MG/DL (70-104); MAGNESIUM 1.5 MG/DL (1.5-2.4); POTASSIUM 3.9 MMOL/L (3.5-5.1); SODIUM 129 MMOL/L (135-145); TOTAL CARBON DIOXIDE 24.6 MMOL/L (24-32); eCRCL 54 ML/MIN; eGFR 54 ML/MIN
[2023-12-27 08:03] LABS: ALBUMIN/GLOBULIN RATIO 0.4 (1.1-1.5); TOTAL PROTEIN 5.6 G/DL (6.4-8.2)
[2023-12-27 08:29] LABS: ANISOCYTOSIS 1+; PLATELET ESTIMATE NORMAL; TOTAL CELLS COUNTED 100
[2023-12-27 08:33] LABS: HYPOCHROMASIA 1+; POLYCHROMASIA 1+; TARGET CELLS 2+
[2023-12-27] MEDS: calcium carbonate 500mg chew tablet PO SCH (09:10)
[2023-12-27] MEDS: furosemide 40mg/4ml inj IV ONE (12:06)
[2023-12-27] MEDS ORDERED: iohexol 300mg/ml 100ml inj. ONE (16:16)
[2023-12-27] MEDS: midodrine 5mg tablet PO SCH (17:17)
[2023-12-28] VITALS (7 sets, daily range): BP systolic 99–119; BP diastolic 49–63; PULSE 93–107; RESP 16–18; TEMP 98–98.1; O2SAT 90–96
[2023-12-28 06:25] LABS: ALANINE AMINOTRANSFERASE 30 U/L (12-78); ALBUMIN 1.3 G/DL (3.4-5.0); ALKALINE PHOSPHATASE 277 IU/L (46-116); ANION GAP 10 (8-16); ASPARTATE AMINO TRANSFERASE 157 U/L (10-37); BILIRUBIN,TOTAL 5.3 MG/DL (0.1-1.0); BLOOD UREA NITROGEN 8 MG/DL (7-18); BUN/CREATININE RATIO 7.1 (10.0-20.0); CALCIUM 7.7 MG/DL (8.5-10.1); CHLORIDE 96 MMOL/L (99-107); CREATININE 1.13 MG/DL (0.40-0.90); GLUCOSE 115 MG/DL (70-104); MAGNESIUM 1.2 MG/DL (1.5-2.4); POTASSIUM 3.9 MMOL/L (3.5-5.1); SODIUM 132 MMOL/L (135-145); TOTAL CARBON DIOXIDE 25.9 MMOL/L (24-32); eCRCL 51 ML/MIN; eGFR 51 ML/MIN
[2023-12-28 06:26] LABS: BASOPHILS # (AUTO) 0.2 X10'3 (0-0.2); BASOPHILS % (AUTO) 0.8 % (0-1); EOSINOPHILS # (AUTO) 0.1 X10'3 (0-0.9); EOSINOPHILS % (AUTO) 0.3 % (0-6); HEMATOCRIT 29.3 % (35.0-45.0); HEMOGLOBIN 9.5 g/dl (12.0-16.0); LYMPHOCYTES % (AUTO) 15.2 % (21-51); MEAN CORPUSCULAR HEMOGLOBIN 33.1 PG (27.0-31.0); MEAN CORPUSCULAR HGB CONC 32.2 g/dL (33.0-36.5); MEAN CORPUSCULAR VOLUME 102.7 FL (78-98); MONOCYTES # (AUTO) 1.2 X10'3 (0-0.9); MONOCYTES % (AUTO) 4.4 % (2-12); NEUTROPHILS % (AUTO) 79.3 % (42-75); PLATELET COUNT 292 X10'3 (140-440); RED BLOOD COUNT 2.86 X10'6 (4.20-5.60); RED CELL DISTRIBUTION WIDTH 17.7 % (11.5-14.5)
[2023-12-28 06:28] LABS: ALBUMIN/GLOBULIN RATIO 0.3 (1.1-1.5); PHOSPHORUS 2.9 MG/DL (2.3-4.5); TOTAL PROTEIN 5.8 G/DL (6.4-8.2)
[2023-12-28 06:32] LABS: WHITE BLOOD COUNT 26.5 X10'3 (4.5-11.0)
[2023-12-28 08:06] LABS: ANISOCYTOSIS 1+; HYPOCHROMASIA 1+; PLATELET ESTIMATE NORMAL; POLYCHROMASIA 1+; ROULEAUX 1+; TOTAL CELLS COUNTED 100
[2023-12-28 08:07] LABS: BURR CELLS FEW; TARGET CELLS 2+
[2023-12-28] MEDS: lactulose 20gm/30ml cup PO SCH (08:12)
[2023-12-29] VITALS (9 sets, daily range): BP systolic 96–105; BP diastolic 52–61; PULSE 86–118; RESP 13–20; TEMP 97.3–98.4; O2SAT 91–95
[2023-12-29 07:00] LABS: EOSINOPHILS # (AUTO) 0.2 X10'3 (0-0.9); EOSINOPHILS % (AUTO) 0.7 % (0-6); HEMOGLOBIN 10.1 g/dl (12.0-16.0); MEAN CORPUSCULAR HEMOGLOBIN 33.3 PG (27.0-31.0); MONOCYTES # (AUTO) 1.6 X10'3 (0-0.9); RED CELL DISTRIBUTION WIDTH 17.3 % (11.5-14.5)
[2023-12-29 07:03] LABS: BASOPHILS # (AUTO) 0.3 X10'3 (0-0.2); BASOPHILS % (AUTO) 1.1 % (0-1); HEMATOCRIT 31.3 % (35.0-45.0); LYMPHOCYTES # (AUTO) 2.7 X10'3 (1.1-4.8); LYMPHOCYTES % (AUTO) 8.9 % (21-51); MEAN CORPUSCULAR HGB CONC 32.2 g/dL (33.0-36.5); MEAN CORPUSCULAR VOLUME 103.4 FL (78-98); MEAN PLATELET VOLUME 11.4 FL (7.4-10.4); MONOCYTES % (AUTO) 5.2 % (2-12); NEUTROPHILS # (AUTO) 25.3 X10'3 (1.8-7.7); NEUTROPHILS % (AUTO) 84.1 % (42-75); PLATELET COUNT 278 X10'3 (140-440); RED BLOOD COUNT 3.03 X10'6 (4.20-5.60)
[2023-12-29 07:35] LABS: ALANINE AMINOTRANSFERASE 29 U/L (12-78); ALBUMIN 1.3 G/DL (3.4-5.0); ALBUMIN/GLOBULIN RATIO 0.3 (1.1-1.5); ALKALINE PHOSPHATASE 315 IU/L (46-116); ANION GAP 10 (8-16); ASPARTATE AMINO TRANSFERASE 166 U/L (10-37); BILIRUBIN,TOTAL 5.9 MG/DL (0.1-1.0); BLOOD UREA NITROGEN 12 MG/DL (7-18); BUN/CREATININE RATIO 10.8 (10.0-20.0); CALCIUM 7.7 MG/DL (8.5-10.1); CHLORIDE 95 MMOL/L (99-107); CREATININE 1.11 MG/DL (0.40-0.90); GLUCOSE 216 MG/DL (70-104); MAGNESIUM 1.4 MG/DL (1.5-2.4); PHOSPHORUS 2.8 MG/DL (2.3-4.5); POTASSIUM 4.8 MMOL/L (3.5-5.1); SODIUM 128 MMOL/L (135-145); TOTAL CARBON DIOXIDE 23.4 MMOL/L (24-32); TOTAL PROTEIN 6.1 G/DL (6.4-8.2); eCRCL 52 ML/MIN; eGFR 52 ML/MIN
[2023-12-29 07:51] LABS: WHITE BLOOD COUNT 30.1 X10'3 (4.5-11.0)
[2023-12-29 07:53] LABS: ANISOCYTOSIS 1+; LARGE PLATELETS FEW; PLATELET ESTIMATE NORMAL; TOTAL CELLS COUNTED 100
[2023-12-29 07:54] LABS: HYPOCHROMASIA 1+; POLYCHROMASIA 1+; TARGET CELLS FEW
[2023-12-29 07:55] LABS: TOXIC GRANULATION 1+
[2023-12-30] VITALS (11 sets, daily range): BP systolic 96–108; BP diastolic 48–62; PULSE 75–94; RESP 15–20; TEMP 97.3–98.3; O2SAT 90–98
[2023-12-30 07:05] LABS: HEMATOCRIT 30.8 % (35.0-45.0); HEMOGLOBIN 9.8 g/dl (12.0-16.0); MEAN CORPUSCULAR HEMOGLOBIN 33.1 PG (27.0-31.0); MEAN CORPUSCULAR HGB CONC 31.8 g/dL (33.0-36.5); MEAN PLATELET VOLUME 10.9 FL (7.4-10.4); PLATELET COUNT 297 X10'3 (140-440); RED BLOOD COUNT 2.97 X10'6 (4.20-5.60); RED CELL DISTRIBUTION WIDTH 17.3 % (11.5-14.5)
[2023-12-30 07:08] LABS: WHITE BLOOD COUNT 26.8 X10'3 (4.5-11.0)
[2023-12-30 07:23] LABS: ALANINE AMINOTRANSFERASE 26 U/L (12-78); ALBUMIN 1.2 G/DL (3.4-5.0); ALKALINE PHOSPHATASE 322 IU/L (46-116); ANION GAP 7 (8-16); ASPARTATE AMINO TRANSFERASE 148 U/L (10-37); BILIRUBIN,TOTAL 5.4 MG/DL (0.1-1.0); BLOOD UREA NITROGEN 15 MG/DL (7-18); BUN/CREATININE RATIO 12.4 (10.0-20.0); CALCIUM 7.6 MG/DL (8.5-10.1); CHLORIDE 94 MMOL/L (99-107); CREATININE 1.21 MG/DL (0.40-0.90); GLUCOSE 230 MG/DL (70-104); POTASSIUM 4.1 MMOL/L (3.5-5.1); SODIUM 125 MMOL/L (135-145); TOTAL CARBON DIOXIDE 24.1 MMOL/L (24-32); eCRCL 48 ML/MIN; eGFR 47 ML/MIN
[2023-12-30 07:26] LABS: ALBUMIN/GLOBULIN RATIO 0.3 (1.1-1.5)
[2023-12-30 07:57] LABS: TOTAL CELLS COUNTED 100
[2023-12-30 07:58] LABS: ANISOCYTOSIS 1+; PLATELET ESTIMATE NORMAL; POLYCHROMASIA FEW; TARGET CELLS 1+; TEAR DROP CELLS FEW; TOXIC GRANULATION 1+
[2023-12-30 07:59] LABS: HYPOCHROMASIA 1+
[2023-12-30] MEDS: INSULIN LISPRO 100 UNIT/ML INSULN.PEN MULTI-DOSE SQ SCH (09:44)
[2023-12-30 11:17] LABS: LIPASE 27 U/L (16-77)
[2023-12-30] MEDS: furosemide 20 MG/2 ML vial IV ONE (13:05)
[2023-12-30 18:00] LABS: PRO BRAIN NATRIURETIC PEPTIDE 1932 PG/ML (0-125)
[2023-12-30] MEDS: spironolactone 25 MG tablet PO SCH (19:49)
[2023-12-30] MEDS: furosemide 20 MG/2 ML vial IV SCH (20:00)
[2023-12-30] MEDS: TOLVAPTAN 30 MG TABLET PO ONE (21:36)
[2023-12-31] VITALS (11 sets, daily range): BP systolic 95–133; BP diastolic 53–71; PULSE 68–104; RESP 15–23; TEMP 96.9–99; O2SAT 87–94
[2023-12-31 06:43] LABS: HDL CHOLESTEROL 13 MG/DL (35-60); LDL CHOLESTEROL 133 MG/DL (50-100)
[2023-12-31 06:46] LABS: CHOL/HDL RATIO 13.5 (0.00-4.99); CHOLESTEROL 175 MG/DL (0-200); TRIGLYCERIDES 121 MG/DL (20-135)
[2023-12-31] MEDS: spironolactone 25 MG tablet PO ONE (08:40)
[2023-12-31 08:50] LABS: BASOPHILS % (AUTO) 0 % (0-1); EOSINOPHILS # (AUTO) 0.4 X10'3 (0-0.9); EOSINOPHILS % (AUTO) 1.3 % (0-6); HEMATOCRIT 32.1 % (35.0-45.0); HEMOGLOBIN 10.1 g/dl (12.0-16.0); LYMPHOCYTES # (AUTO) 2.8 X10'3 (1.1-4.8); LYMPHOCYTES % (AUTO) 10.6 % (21-51); MEAN CORPUSCULAR HEMOGLOBIN 33.2 PG (27.0-31.0); MEAN CORPUSCULAR HGB CONC 31.5 g/dL (33.0-36.5); MEAN CORPUSCULAR VOLUME 105.3 FL (78-98); MEAN PLATELET VOLUME 11.4 FL (7.4-10.4); MONOCYTES # (AUTO) 0.9 X10'3 (0-0.9); MONOCYTES % (AUTO) 3.5 % (2-12); NEUTROPHILS # (AUTO) 22.3 X10'3 (1.8-7.7); NEUTROPHILS % (AUTO) 84.6 % (42-75); PLATELET COUNT 288 X10'3 (140-440); RED BLOOD COUNT 3.04 X10'6 (4.20-5.60); RED CELL DISTRIBUTION WIDTH 17.6 % (11.5-14.5)
[2023-12-31 08:56] LABS: ALANINE AMINOTRANSFERASE 25 U/L (12-78); ALBUMIN 1.2 G/DL (3.4-5.0); ALKALINE PHOSPHATASE 321 IU/L (46-116); ANION GAP 10 (8-16); ASPARTATE AMINO TRANSFERASE 152 U/L (10-37); BILIRUBIN,TOTAL 5.8 MG/DL (0.1-1.0); BLOOD UREA NITROGEN 21 MG/DL (7-18); BUN/CREATININE RATIO 15.1 (10.0-20.0); CALCIUM 7.9 MG/DL (8.5-10.1); CHLORIDE 92 MMOL/L (99-107); CREATININE 1.39 MG/DL (0.40-0.90); GLUCOSE 213 MG/DL (70-104); MAGNESIUM 1.3 MG/DL (1.5-2.4); POTASSIUM 4.5 MMOL/L (3.5-5.1); SODIUM 126 MMOL/L (135-145); eCRCL 41 ML/MIN; eGFR 40 ML/MIN
[2023-12-31] MEDS: HYDROcodone/acetaminophen 5mg/325mg tablet PO PRN (08:58)
[2023-12-31] MEDS: INSULIN LISPRO 100 UNIT/ML INSULN.PEN MULTI-DOSE SQ SCH (09:00)
[2023-12-31 09:01] LABS: ALBUMIN/GLOBULIN RATIO 0.2 (1.1-1.5); PHOSPHORUS 3.4 MG/DL (2.3-4.5); TOTAL PROTEIN 6.2 G/DL (6.4-8.2)
[2023-12-31 09:11] LABS: WHITE BLOOD COUNT 26.4 X10'3 (4.5-11.0)
[2023-12-31 10:06] LABS: ANISOCYTOSIS 1+; HYPOCHROMASIA 1+; NUCLEATED RED BLOOD CELLS 1 /100WBC (0-0); PLATELET ESTIMATE NORMAL; POLYCHROMASIA 1+; TARGET CELLS 1+; TOTAL CELLS COUNTED 100
[2023-12-31] MEDS ORDERED: furosemide inj 100 MG in normal saline 100ml IV soln 90 ML IV SCH (11:40)
[2023-12-31 12:58] LABS: ALANINE AMINOTRANSFERASE 25 U/L (12-78); ALKALINE PHOSPHATASE 315 IU/L (46-116); ANION GAP 5 (8-16); ASPARTATE AMINO TRANSFERASE 136 U/L (10-37); BILIRUBIN,TOTAL 5.3 MG/DL (0.1-1.0); BLOOD UREA NITROGEN 24 MG/DL (7-18); BUN/CREATININE RATIO 15.5 (10.0-20.0); CALCIUM 7.4 MG/DL (8.5-10.1); CHLORIDE 94 MMOL/L (99-107); CREATININE 1.55 MG/DL (0.40-0.90); GLUCOSE 305 MG/DL (70-104); POTASSIUM 4.8 MMOL/L (3.5-5.1); SODIUM 124 MMOL/L (135-145); TOTAL CARBON DIOXIDE 24.8 MMOL/L (24-32); eCRCL 37 ML/MIN; eGFR 35 ML/MIN
[2023-12-31 13:10] LABS: ALBUMIN/GLOBULIN RATIO 0.2 (1.1-1.5); TOTAL PROTEIN 5.6 G/DL (6.4-8.2)
[2023-12-31] MEDS: albumin (human) 25% 100 ML IV solution IV SCH (13:47)
[2023-12-31] MEDS: furosemide inj 100 MG in normal saline 100ml IV soln 90 ML IV ONE ×2 (13:48→22:19)
[2023-12-31] MEDS ORDERED: albumin (human) 25% 100 ML IV solution IV SCH (14:00)
[2023-12-31] MEDS: magnesium sulf-water 4G/100mL 100 ML IV PRN (16:12)
[2023-12-31] MEDS: magnesium sulf-water 2g/50mL 50 ML IV PRN (16:12)
[2023-12-31] MEDS ORDERED: furosemide inj 100 MG in normal saline 100ml IV soln 90 ML IV ONE (17:25)
[2023-12-31 19:06] LABS: ALANINE AMINOTRANSFERASE 26 U/L (12-78); ALBUMIN 1.6 G/DL (3.4-5.0); ALKALINE PHOSPHATASE 336 IU/L (46-116); ANION GAP 6 (8-16); ASPARTATE AMINO TRANSFERASE 135 U/L (10-37); BILIRUBIN,TOTAL 6.2 MG/DL (0.1-1.0); BLOOD UREA NITROGEN 23 MG/DL (7-18); CALCIUM 7.8 MG/DL (8.5-10.1); CHLORIDE 92 MMOL/L (99-107); CREATININE 1.53 MG/DL (0.40-0.90); GLUCOSE 235 MG/DL (70-104); POTASSIUM 4.6 MMOL/L (3.5-5.1); SODIUM 124 MMOL/L (135-145); TOTAL CARBON DIOXIDE 26.5 MMOL/L (24-32); eCRCL 38 ML/MIN; eGFR 36 ML/MIN
[2023-12-31 19:07] LABS: ALBUMIN/GLOBULIN RATIO 0.3 (1.1-1.5); TOTAL PROTEIN 6.4 G/DL (6.4-8.2)
[2023-12-31 19:16] LABS: MAGNESIUM 1.7 MG/DL (1.5-2.4)
[2023-12-31] MEDS ORDERED: furosemide 20 MG/2 ML vial IV SCH (20:00)
[2023-12-31] MEDS: insulin glargine (Lantus) pen - multi-dose SQ SCH (22:16)
[2023-12-31] MEDS: morphine 2 MG/ML inj. syringe IV PRN (23:25)
[2024-01-01] VITALS (11 sets, daily range): BP systolic 94–142; BP diastolic 49–71; PULSE 83–113; RESP 16–29; TEMP 96.7–99.2; O2SAT 92–95
[2024-01-01 01:02] LABS: ALANINE AMINOTRANSFERASE 20 U/L (12-78); ALBUMIN 1.8 G/DL (3.4-5.0); ALKALINE PHOSPHATASE 270 IU/L (46-116); ANION GAP 7 (8-16); ASPARTATE AMINO TRANSFERASE 111 U/L (10-37); BLOOD UREA NITROGEN 26 MG/DL (7-18); BUN/CREATININE RATIO 17.9 (10.0-20.0); CALCIUM 7.6 MG/DL (8.5-10.1); CHLORIDE 93 MMOL/L (99-107); CREATININE 1.45 MG/DL (0.40-0.90); GLUCOSE 249 MG/DL (70-104); MAGNESIUM 2.6 MG/DL (1.5-2.4); POTASSIUM 4.8 MMOL/L (3.5-5.1); SODIUM 125 MMOL/L (135-145); TOTAL CARBON DIOXIDE 25.2 MMOL/L (24-32); eCRCL 40 ML/MIN; eGFR 38 ML/MIN
[2024-01-01 01:04] LABS: ALBUMIN/GLOBULIN RATIO 0.5 (1.1-1.5); TOTAL PROTEIN 5.6 G/DL (6.4-8.2)
[2024-01-01 06:23] LABS: BASOPHILS # (AUTO) 0.1 X10'3 (0-0.2); BASOPHILS % (AUTO) 0.4 % (0-1); EOSINOPHILS # (AUTO) 0.2 X10'3 (0-0.9); EOSINOPHILS % (AUTO) 0.8 % (0-6); HEMATOCRIT 29.2 % (35.0-45.0); HEMOGLOBIN 9.2 g/dl (12.0-16.0); LYMPHOCYTES # (AUTO) 2.2 X10'3 (1.1-4.8); LYMPHOCYTES % (AUTO) 9.3 % (21-51); MEAN CORPUSCULAR HEMOGLOBIN 33.2 PG (27.0-31.0); MEAN CORPUSCULAR HGB CONC 31.6 g/dL (33.0-36.5); MEAN PLATELET VOLUME 11.4 FL (7.4-10.4); MONOCYTES # (AUTO) 1.4 X10'3 (0-0.9); MONOCYTES % (AUTO) 5.7 % (2-12); NEUTROPHILS # (AUTO) 20.1 X10'3 (1.8-7.7); NEUTROPHILS % (AUTO) 83.8 % (42-75); PLATELET COUNT 266 X10'3 (140-440); RED BLOOD COUNT 2.78 X10'6 (4.20-5.60); RED CELL DISTRIBUTION WIDTH 17.7 % (11.5-14.5)
[2024-01-01 06:38] LABS: APTT 39 SECONDS (22-32); INR 1.8 INR; PROTHROMBIN TIME 18.4 SECONDS (9.0-12.0)
[2024-01-01 06:41] LABS: ALANINE AMINOTRANSFERASE 21 U/L (12-78); ALBUMIN 2.3 G/DL (3.4-5.0); ALKALINE PHOSPHATASE 283 IU/L (46-116); ANION GAP 9 (8-16); ASPARTATE AMINO TRANSFERASE 120 U/L (10-37); BILIRUBIN,TOTAL 7.2 MG/DL (0.1-1.0); BLOOD UREA NITROGEN 26 MG/DL (7-18); BUN/CREATININE RATIO 18.8 (10.0-20.0); CALCIUM 7.9 MG/DL (8.5-10.1); CHLORIDE 93 MMOL/L (99-107); CREATININE 1.38 MG/DL (0.40-0.90); GLUCOSE 288 MG/DL (70-104); MAGNESIUM 2.5 MG/DL (1.5-2.4); POTASSIUM 4.2 MMOL/L (3.5-5.1); SODIUM 126 MMOL/L (135-145); TOTAL CARBON DIOXIDE 24.4 MMOL/L (24-32); eCRCL 42 ML/MIN; eGFR 40 ML/MIN
[2024-01-01 06:42] LABS: ALBUMIN/GLOBULIN RATIO 0.6 (1.1-1.5); PHOSPHORUS 3.7 MG/DL (2.3-4.5); TOTAL PROTEIN 6.3 G/DL (6.4-8.2)
[2024-01-01 07:17] LABS: ANISOCYTOSIS 1+; PLATELET ESTIMATE NORMAL
[2024-01-01 07:18] LABS: LARGE PLATELETS MODERATE; TARGET CELLS 1+
[2024-01-01] MEDS ORDERED: spironolactone 25 MG tablet PO SCH (08:30)
[2024-01-01] MEDS: furosemide inj 100 MG in normal saline 100ml IV soln 90 ML IV SCH ×2 (08:52→19:51)
[2024-01-01 09:13] LABS: ALANINE AMINOTRANSFERASE 20 U/L (12-78); ALBUMIN 2.2 G/DL (3.4-5.0); ALKALINE PHOSPHATASE 282 IU/L (46-116); ANION GAP 7 (8-16); ASPARTATE AMINO TRANSFERASE 119 U/L (10-37); BILIRUBIN,TOTAL 7.2 MG/DL (0.1-1.0); BLOOD UREA NITROGEN 26 MG/DL (7-18); BUN/CREATININE RATIO 19.5 (10.0-20.0); CALCIUM 7.6 MG/DL (8.5-10.1); CHLORIDE 93 MMOL/L (99-107); CREATININE 1.33 MG/DL (0.40-0.90); GLUCOSE 300 MG/DL (70-104); MAGNESIUM 2.2 MG/DL (1.5-2.4); SODIUM 124 MMOL/L (135-145); TOTAL CARBON DIOXIDE 23.9 MMOL/L (24-32); eCRCL 43 ML/MIN; eGFR 42 ML/MIN
[2024-01-01 09:15] LABS: ALBUMIN/GLOBULIN RATIO 0.6 (1.1-1.5); POTASSIUM 4.5 MMOL/L (3.5-5.1); TOTAL PROTEIN 6.2 G/DL (6.4-8.2)
[2024-01-01 13:54] LABS: ALANINE AMINOTRANSFERASE 14 U/L (12-78); ALBUMIN 2.6 G/DL (3.4-5.0); ALKALINE PHOSPHATASE 305 IU/L (46-116); ANION GAP 8 (8-16); ASPARTATE AMINO TRANSFERASE 130 U/L (10-37); BILIRUBIN,TOTAL 7.9 MG/DL (0.1-1.0); BLOOD UREA NITROGEN 28 MG/DL (7-18); BUN/CREATININE RATIO 21.9 (10.0-20.0); CHLORIDE 91 MMOL/L (99-107); CREATININE 1.28 MG/DL (0.40-0.90); GLUCOSE 288 MG/DL (70-104); POTASSIUM 4.2 MMOL/L (3.5-5.1); SODIUM 126 MMOL/L (135-145); TOTAL CARBON DIOXIDE 27.1 MMOL/L (24-32); eCRCL 45 ML/MIN; eGFR 44 ML/MIN
[2024-01-01 13:59] LABS: ALBUMIN/GLOBULIN RATIO 0.7 (1.1-1.5); TOTAL PROTEIN 6.6 G/DL (6.4-8.2)
[2024-01-01 20:02] LABS: ALANINE AMINOTRANSFERASE 17 U/L (12-78); ALBUMIN 2.8 G/DL (3.4-5.0); ALKALINE PHOSPHATASE 297 IU/L (46-116); ANION GAP 9 (8-16); ASPARTATE AMINO TRANSFERASE 125 U/L (10-37); BLOOD UREA NITROGEN 27 MG/DL (7-18); BUN/CREATININE RATIO 21.8 (10.0-20.0); CALCIUM 7.7 MG/DL (8.5-10.1); CHLORIDE 92 MMOL/L (99-107); CREATININE 1.24 MG/DL (0.40-0.90); GLUCOSE 266 MG/DL (70-104); MAGNESIUM 1.6 MG/DL (1.5-2.4); SODIUM 126 MMOL/L (135-145); TOTAL CARBON DIOXIDE 24.6 MMOL/L (24-32); eCRCL 46 ML/MIN; eGFR 46 ML/MIN
[2024-01-01 20:10] LABS: ALBUMIN/GLOBULIN RATIO 0.8 (1.1-1.5); POTASSIUM 4.4 MMOL/L (3.5-5.1); TOTAL PROTEIN 6.5 G/DL (6.4-8.2)
[2024-01-01] MEDS: methylPREDNISolone sod succ 125mg/2ml vial IV SCH (21:29)
[2024-01-01] MEDS: guaiFENesin 200 MG/10 ML oral syrup UD cup PO PRN (21:29)
[2024-01-01] MEDS: insulin glargine (Lantus) pen - multi-dose SQ SCH (21:37)
[2024-01-02] VITALS (11 sets, daily range): BP systolic 91–130; BP diastolic 49–70; PULSE 82–123; RESP 15–27; TEMP 97.9–99.3; O2SAT 91–97
[2024-01-02 03:16] LABS: ALANINE AMINOTRANSFERASE 18 U/L (12-78); ALBUMIN 3.3 G/DL (3.4-5.0); ALKALINE PHOSPHATASE 285 IU/L (46-116); ANION GAP 8 (8-16); ASPARTATE AMINO TRANSFERASE 123 U/L (10-37); BILIRUBIN,TOTAL 8.1 MG/DL (0.1-1.0); BLOOD UREA NITROGEN 28 MG/DL (7-18); BUN/CREATININE RATIO 23.9 (10.0-20.0); CALCIUM 8.7 MG/DL (8.5-10.1); CHLORIDE 93 MMOL/L (99-107); CREATININE 1.17 MG/DL (0.40-0.90); GLUCOSE 247 MG/DL (70-104); POTASSIUM 4.1 MMOL/L (3.5-5.1); SODIUM 128 MMOL/L (135-145); TOTAL CARBON DIOXIDE 26.8 MMOL/L (24-32); eCRCL 49 ML/MIN; eGFR 49 ML/MIN
[2024-01-02 03:19] LABS: TOTAL PROTEIN 6.5 G/DL (6.4-8.2)
[2024-01-02 05:21] LABS: VITAMIN D, 25-HYDROXY 23.7 ng/mL (30.0-100.0)
[2024-01-02 05:21] LABS: HEP A AB, IGM Negative (Negative); HEPATITIS C VIRUS ANTIBODY Non Reactive (Non Reactive)
[2024-01-02 07:18] LABS: BASOPHILS % (AUTO) 0.1 % (0-1); EOSINOPHILS # (AUTO) 0.1 X10'3 (0-0.9); EOSINOPHILS % (AUTO) 0.2 % (0-6); HEMATOCRIT 26.5 % (35.0-45.0); HEMOGLOBIN 8.4 g/dl (12.0-16.0); LYMPHOCYTES # (AUTO) 1.3 X10'3 (1.1-4.8); LYMPHOCYTES % (AUTO) 5.2 % (21-51); MEAN CORPUSCULAR HEMOGLOBIN 32.7 PG (27.0-31.0); MEAN CORPUSCULAR HGB CONC 31.6 g/dL (33.0-36.5); MEAN CORPUSCULAR VOLUME 103.7 FL (78-98); MEAN PLATELET VOLUME 11.6 FL (7.4-10.4); MONOCYTES # (AUTO) 0.7 X10'3 (0-0.9); NEUTROPHILS # (AUTO) 22.3 X10'3 (1.8-7.7); NEUTROPHILS % (AUTO) 91.5 % (42-75); PLATELET COUNT 252 X10'3 (140-440); RED BLOOD COUNT 2.55 X10'6 (4.20-5.60); RED CELL DISTRIBUTION WIDTH 17.3 % (11.5-14.5); WHITE BLOOD COUNT 24.4 X10'3 (4.5-11.0)
[2024-01-02] MEDS: NUT.TX.GLUC.INTOLER,LAC-FR,SOY (GLUCERNA) 237 ML PO SCH (07:30)
[2024-01-02 08:04] LABS: ALANINE AMINOTRANSFERASE 15 U/L (12-78); ALBUMIN 3.1 G/DL (3.4-5.0); ALKALINE PHOSPHATASE 245 IU/L (46-116); ANION GAP 9 (8-16); ASPARTATE AMINO TRANSFERASE 107 U/L (10-37); BILIRUBIN,TOTAL 7.9 MG/DL (0.1-1.0); BLOOD UREA NITROGEN 31 MG/DL (7-18); CALCIUM 7.4 MG/DL (8.5-10.1); CHLORIDE 93 MMOL/L (99-107); CREATININE 1.24 MG/DL (0.40-0.90); GLUCOSE 255 MG/DL (70-104); POTASSIUM 3.9 MMOL/L (3.5-5.1); SODIUM 130 MMOL/L (135-145); TOTAL CARBON DIOXIDE 27.8 MMOL/L (24-32); TOTAL CELLS COUNTED 100; eCRCL 46 ML/MIN; eGFR 46 ML/MIN
[2024-01-02 08:05] LABS: ANISOCYTOSIS 1+; PLATELET ESTIMATE NORMAL; TARGET CELLS 1+
[2024-01-02 08:09] LABS: BILIRUBIN,DIRECT 6.1 MG/DL (0-0.3); MAGNESIUM 2.3 MG/DL (1.5-2.4)
[2024-01-02 08:10] LABS: ALBUMIN/GLOBULIN RATIO 1.1 (1.1-1.5); PHOSPHORUS 3.7 MG/DL (2.3-4.5); TOTAL PROTEIN 5.9 G/DL (6.4-8.2)
[2024-01-02 14:10] LABS: ALANINE AMINOTRANSFERASE 17 U/L (12-78); ALBUMIN 3.1 G/DL (3.4-5.0); ALKALINE PHOSPHATASE 260 IU/L (46-116); ANION GAP 11 (8-16); ASPARTATE AMINO TRANSFERASE 103 U/L (10-37); BILIRUBIN,TOTAL 7.4 MG/DL (0.1-1.0); BLOOD UREA NITROGEN 29 MG/DL (7-18); BUN/CREATININE RATIO 26.1 (10.0-20.0); CALCIUM 8.1 MG/DL (8.5-10.1); CHLORIDE 95 MMOL/L (99-107); CREATININE 1.11 MG/DL (0.40-0.90); GLUCOSE 355 MG/DL (70-104); MAGNESIUM 2.8 MG/DL (1.5-2.4); POTASSIUM 3.3 MMOL/L (3.5-5.1); SODIUM 133 MMOL/L (135-145); TOTAL CARBON DIOXIDE 26.6 MMOL/L (24-32); eCRCL 52 ML/MIN; eGFR 52 ML/MIN
[2024-01-02 14:17] LABS: ALBUMIN/GLOBULIN RATIO 0.9 (1.1-1.5); TOTAL PROTEIN 6.5 G/DL (6.4-8.2)
[2024-01-02] MEDS: potassium Cl 20 mEq SR tablet PO PRN (17:52)
[2024-01-02 19:54] LABS: ALANINE AMINOTRANSFERASE 20 U/L (12-78); ALBUMIN 3.2 G/DL (3.4-5.0); ALBUMIN/GLOBULIN RATIO 0.9 (1.1-1.5); ALKALINE PHOSPHATASE 260 IU/L (46-116); ANION GAP 11 (8-16); ASPARTATE AMINO TRANSFERASE 92 U/L (10-37); BILIRUBIN,TOTAL 7.1 MG/DL (0.1-1.0); BLOOD UREA NITROGEN 29 MG/DL (7-18); BUN/CREATININE RATIO 24.6 (10.0-20.0); CALCIUM 8.1 MG/DL (8.5-10.1); CHLORIDE 94 MMOL/L (99-107); CREATININE 1.18 MG/DL (0.40-0.90); GLUCOSE 380 MG/DL (70-104); MAGNESIUM 2.3 MG/DL (1.5-2.4); SODIUM 132 MMOL/L (135-145); TOTAL CARBON DIOXIDE 26.9 MMOL/L (24-32); TOTAL PROTEIN 6.7 G/DL (6.4-8.2); eCRCL 49 ML/MIN; eGFR 48 ML/MIN
[2024-01-02] MEDS: LORazepam 0.5 MG tablet PO PRN (21:45)
[2024-01-02] MEDS: potassium Cl 40MEQ/1/2NS 520ml 520 ML IV PRN (22:10)
[2024-01-02] MEDS: insulin glargine (Lantus) pen - multi-dose SQ ONE (23:39)
[2024-01-03] VITALS (13 sets, daily range): BP systolic 99–157; BP diastolic 52–80; PULSE 91–104; RESP 15–26; TEMP 97.3–98.9; O2SAT 91–98
[2024-01-03 07:45] LABS: BASOPHILS # (AUTO) 0.1 X10'3 (0-0.2); BASOPHILS % (AUTO) 0.2 % (0-1); EOSINOPHILS % (AUTO) 0 % (0-6); HEMATOCRIT 26.7 % (35.0-45.0); HEMOGLOBIN 8.4 g/dl (12.0-16.0); LYMPHOCYTES % (AUTO) 4.1 % (21-51); MEAN CORPUSCULAR HGB CONC 31.6 g/dL (33.0-36.5); MEAN CORPUSCULAR VOLUME 104.5 FL (78-98); MEAN PLATELET VOLUME 11.5 FL (7.4-10.4); MONOCYTES # (AUTO) 1.1 X10'3 (0-0.9); MONOCYTES % (AUTO) 4.4 % (2-12); NEUTROPHILS # (AUTO) 22.8 X10'3 (1.8-7.7); NEUTROPHILS % (AUTO) 91.3 % (42-75); PLATELET COUNT 269 X10'3 (140-440); RED BLOOD COUNT 2.55 X10'6 (4.20-5.60); RED CELL DISTRIBUTION WIDTH 17.2 % (11.5-14.5)
[2024-01-03 08:31] LABS: ALANINE AMINOTRANSFERASE 20 U/L (12-78); ALBUMIN 3.4 G/DL (3.4-5.0); ALKALINE PHOSPHATASE 257 IU/L (46-116); ANION GAP 11 (8-16); ASPARTATE AMINO TRANSFERASE 82 U/L (10-37); BILIRUBIN,TOTAL 6.7 MG/DL (0.1-1.0); BLOOD UREA NITROGEN 34 MG/DL (7-18); BUN/CREATININE RATIO 31.8 (10.0-20.0); CALCIUM 8.2 MG/DL (8.5-10.1); CHLORIDE 96 MMOL/L (99-107); CREATININE 1.07 MG/DL (0.40-0.90); POTASSIUM 3.7 MMOL/L (3.5-5.1); SODIUM 133 MMOL/L (135-145); TOTAL CARBON DIOXIDE 26.5 MMOL/L (24-32); eCRCL 54 ML/MIN; eGFR 54 ML/MIN
[2024-01-03 08:39] LABS: ALBUMIN/GLOBULIN RATIO 1.1 (1.1-1.5); PHOSPHORUS 2.8 MG/DL (2.3-4.5); TOTAL PROTEIN 6.6 G/DL (6.4-8.2)
[2024-01-03] MEDS: insulin glargine (Lantus) pen - multi-dose SQ SCH (08:47)
[2024-01-03 08:49] LABS: ANISOCYTOSIS 1+; HYPOCHROMASIA 1+; PLATELET ESTIMATE NORMAL; POLYCHROMASIA 1+; TOTAL CELLS COUNTED 100
[2024-01-03 08:50] LABS: TARGET CELLS 2+
[2024-01-03 08:59] LABS: GLUCOSE 442 MG/DL (70-104)
[2024-01-03] MEDS: INSULIN LISPRO 100 UNIT/ML INSULN.PEN MULTI-DOSE SQ SCH (09:00)
[2024-01-03 13:26] LABS: MAGNESIUM 1.9 MG/DL (1.5-2.4)
[2024-01-03] MEDS ORDERED: FOLI1TAB27 PO (13:35)
[2024-01-03] MEDS ORDERED: thiamine tablet PO (13:35)
[2024-01-03] MEDS ORDERED: MULT-25 PO (13:35)
[2024-01-03] MEDS ORDERED: HYDR-3965 PO (13:38)
[2024-01-03] MEDS ORDERED: LORA-269 PO (13:38)
[2024-01-03] MEDS ORDERED: ACET-1008 PO (13:40)
[2024-01-03] MEDS: metolazone 2.5mg tablet PO SCH (17:27)
[2024-01-03 20:00] LABS: MAGNESIUM 1.4 MG/DL (1.5-2.4)
[2024-01-04] VITALS (14 sets, daily range): BP systolic 111–153; BP diastolic 55–77; PULSE 84–103; RESP 14–27; TEMP 97.3–98; O2SAT 91–97
[2024-01-04 06:55] LABS: MEAN CORPUSCULAR HEMOGLOBIN 33.3 PG (27.0-31.0); MEAN PLATELET VOLUME 11.3 FL (7.4-10.4)
[2024-01-04 06:57] LABS: BASOPHILS % (AUTO) 0.2 % (0-1); EOSINOPHILS % (AUTO) 0.1 % (0-6); HEMATOCRIT 27.8 % (35.0-45.0); HEMOGLOBIN 8.8 g/dl (12.0-16.0); LYMPHOCYTES # (AUTO) 0.9 X10'3 (1.1-4.8); LYMPHOCYTES % (AUTO) 3.3 % (21-51); MEAN CORPUSCULAR HGB CONC 31.5 g/dL (33.0-36.5); MEAN CORPUSCULAR VOLUME 105.7 FL (78-98); MONOCYTES # (AUTO) 1.2 X10'3 (0-0.9); MONOCYTES % (AUTO) 4.5 % (2-12); NEUTROPHILS # (AUTO) 25.3 X10'3 (1.8-7.7); NEUTROPHILS % (AUTO) 91.9 % (42-75); PLATELET COUNT 266 X10'3 (140-440); RED BLOOD COUNT 2.63 X10'6 (4.20-5.60); RED CELL DISTRIBUTION WIDTH 17.2 % (11.5-14.5)
[2024-01-04 07:13] LABS: WHITE BLOOD COUNT 27.5 X10'3 (4.5-11.0)
[2024-01-04 07:23] LABS: ALANINE AMINOTRANSFERASE 28 U/L (12-78); ALBUMIN 3.8 G/DL (3.4-5.0); ALBUMIN/GLOBULIN RATIO 1.4 (1.1-1.5); ALKALINE PHOSPHATASE 239 IU/L (46-116); ANION GAP 11 (8-16); ASPARTATE AMINO TRANSFERASE 95 U/L (10-37); BILIRUBIN,TOTAL 6.1 MG/DL (0.1-1.0); BLOOD UREA NITROGEN 46 MG/DL (7-18); BUN/CREATININE RATIO 39.3 (10.0-20.0); CALCIUM 8.2 MG/DL (8.5-10.1); CHLORIDE 94 MMOL/L (99-107); CREATININE 1.17 MG/DL (0.40-0.90); GLUCOSE 320 MG/DL (70-104); MAGNESIUM 1.6 MG/DL (1.5-2.4); PHOSPHORUS 3.3 MG/DL (2.3-4.5); SODIUM 134 MMOL/L (135-145); TOTAL CARBON DIOXIDE 28.9 MMOL/L (24-32); TOTAL PROTEIN 6.5 G/DL (6.4-8.2); eCRCL 49 ML/MIN; eGFR 49 ML/MIN
[2024-01-04 07:27] LABS: PLATELET ESTIMATE NORMAL; TOTAL CELLS COUNTED 100
[2024-01-04 07:28] LABS: ANISOCYTOSIS 1+
[2024-01-04 07:36] LABS: HYPOCHROMASIA 1+; NUCLEATED RED BLOOD CELLS 1 /100WBC (0-0); POLYCHROMASIA 2+; TARGET CELLS 2+
[2024-01-04] MEDS: potassium Cl 20 mEq SR tablet PO PRN (09:04)
[2024-01-04] MEDS: ipratropium/albuterol 3ml nebule NEB SCH (10:37)
[2024-01-04] MEDS ORDERED: lactose-reduced food (Ensure Enlive) - 237ml bottle PO SCH (13:00)
[2024-01-04 13:54] LABS: MAGNESIUM 1.3 MG/DL (1.5-2.4)
[2024-01-04] MEDS: NUT.TX.GLUC.INTOLER,LAC-FR,SOY (GLUCERNA) 237 ML PO SCH (18:30)
[2024-01-04 20:27] LABS: POTASSIUM 4.1 MMOL/L (3.5-5.1)
[2024-01-04] MEDS: insulin glargine (Lantus) pen - multi-dose SQ SCH (21:12)
[2024-01-05] VITALS (12 sets, daily range): BP systolic 83–120; BP diastolic 37–61; PULSE 95–107; RESP 14–26; TEMP 96.6–98.4; O2SAT 92–98
[2024-01-05 08:33] LABS: BASOPHILS # (AUTO) 0.1 X10'3 (0-0.2); BASOPHILS % (AUTO) 0.4 % (0-1); EOSINOPHILS # (AUTO) 0.2 X10'3 (0-0.9); EOSINOPHILS % (AUTO) 0.6 % (0-6); HEMATOCRIT 26.3 % (35.0-45.0); HEMOGLOBIN 8.2 g/dl (12.0-16.0); LYMPHOCYTES # (AUTO) 1.8 X10'3 (1.1-4.8); LYMPHOCYTES % (AUTO) 6.5 % (21-51); MEAN CORPUSCULAR HEMOGLOBIN 32.7 PG (27.0-31.0); MEAN CORPUSCULAR HGB CONC 31.2 g/dL (33.0-36.5); MEAN CORPUSCULAR VOLUME 104.6 FL (78-98); MEAN PLATELET VOLUME 11.7 FL (7.4-10.4); MONOCYTES # (AUTO) 1.3 X10'3 (0-0.9); MONOCYTES % (AUTO) 4.6 % (2-12); NEUTROPHILS # (AUTO) 24.8 X10'3 (1.8-7.7); NEUTROPHILS % (AUTO) 87.9 % (42-75); PLATELET COUNT 185 X10'3 (140-440); RED BLOOD COUNT 2.51 X10'6 (4.20-5.60); RED CELL DISTRIBUTION WIDTH 16.9 % (11.5-14.5)
[2024-01-05 08:41] LABS: ALANINE AMINOTRANSFERASE 43 U/L (12-78); ALBUMIN 3.8 G/DL (3.4-5.0); ALKALINE PHOSPHATASE 307 IU/L (46-116); ANION GAP 9 (8-16); BILIRUBIN,TOTAL 6.9 MG/DL (0.1-1.0); BLOOD UREA NITROGEN 64 MG/DL (7-18); BUN/CREATININE RATIO 47.1 (10.0-20.0); CALCIUM 8.4 MG/DL (8.5-10.1); CHLORIDE 95 MMOL/L (99-107); CREATININE 1.36 MG/DL (0.40-0.90); GLUCOSE 171 MG/DL (70-104); MAGNESIUM 1.4 MG/DL (1.5-2.4); SODIUM 133 MMOL/L (135-145); TOTAL CARBON DIOXIDE 28.6 MMOL/L (24-32); eCRCL 42 ML/MIN; eGFR 41 ML/MIN
[2024-01-05 08:43] LABS: ALBUMIN/GLOBULIN RATIO 1.6 (1.1-1.5); ASPARTATE AMINO TRANSFERASE 287 U/L (10-37); PHOSPHORUS 2.2 MG/DL (2.3-4.5); POTASSIUM 4.5 MMOL/L (3.5-5.1); TOTAL PROTEIN 6.2 G/DL (6.4-8.2)
[2024-01-05 08:53] LABS: WHITE BLOOD COUNT 28.2 X10'3 (4.5-11.0)
[2024-01-05 09:46] LABS: ANISOCYTOSIS 1+; LARGE PLATELETS FEW; NUCLEATED RED BLOOD CELLS 1 /100WBC (0-0); PLATELET ESTIMATE NORMAL; TOTAL CELLS COUNTED 100
[2024-01-05 09:47] LABS: HYPOCHROMASIA 1+; POLYCHROMASIA 2+; TARGET CELLS 2+
[2024-01-05] MEDS ORDERED: magnesium Cl slow-release 64mg tablet PO PRN (10:00)
[2024-01-05] MEDS ORDERED: magnesium sulf-water 4G/100mL 100 ML IV PRN (10:00)
[2024-01-05] MEDS ORDERED: magnesium sulf-water 2g/50mL 50 ML IV PRN (10:00)
[2024-01-05] MEDS: CefTRIAXone 2gm/D5W 50ml BAG 50 ML IV ONE (10:12)
[2024-01-05] MEDS: rifaximin 550mg tablet PO SCH (10:33)
[2024-01-05] MEDS: magnesium Cl slow-release 64mg tablet PO PRN (12:39)
[2024-01-05] MEDS: Neutra Phos packet PO SCH (12:40)
[2024-01-06] VITALS (9 sets, daily range): BP systolic 112–158; BP diastolic 58–82; PULSE 87–108; RESP 18–25; TEMP 97.5–98; O2SAT 95–99
[2024-01-06 07:21] LABS: BASOPHILS # (AUTO) 0.1 X10'3 (0-0.2); BASOPHILS % (AUTO) 0.4 % (0-1); EOSINOPHILS # (AUTO) 0.4 X10'3 (0-0.9); EOSINOPHILS % (AUTO) 1.6 % (0-6); HEMOGLOBIN 7.6 g/dl (12.0-16.0); LYMPHOCYTES # (AUTO) 1.8 X10'3 (1.1-4.8); LYMPHOCYTES % (AUTO) 7.5 % (21-51); MEAN CORPUSCULAR HEMOGLOBIN 32.9 PG (27.0-31.0); MEAN CORPUSCULAR HGB CONC 31.8 g/dL (33.0-36.5); MEAN CORPUSCULAR VOLUME 103.7 FL (78-98); MEAN PLATELET VOLUME 11.1 FL (7.4-10.4); MONOCYTES # (AUTO) 0.8 X10'3 (0-0.9); MONOCYTES % (AUTO) 3.3 % (2-12); NEUTROPHILS # (AUTO) 20.7 X10'3 (1.8-7.7); NEUTROPHILS % (AUTO) 87.2 % (42-75); PLATELET COUNT 199 X10'3 (140-440); RED BLOOD COUNT 2.31 X10'6 (4.20-5.60); RED CELL DISTRIBUTION WIDTH 16.8 % (11.5-14.5); WHITE BLOOD COUNT 23.8 X10'3 (4.5-11.0)
[2024-01-06 07:44] LABS: ALANINE AMINOTRANSFERASE 34 U/L (12-78); ALKALINE PHOSPHATASE 264 IU/L (46-116); ANION GAP 10 (8-16); ASPARTATE AMINO TRANSFERASE 121 U/L (10-37); BILIRUBIN,TOTAL 6.7 MG/DL (0.1-1.0); BLOOD UREA NITROGEN 64 MG/DL (7-18); BUN/CREATININE RATIO 56.1 (10.0-20.0); CALCIUM 8.6 MG/DL (8.5-10.1); CHLORIDE 96 MMOL/L (99-107); CREATININE 1.14 MG/DL (0.40-0.90); GLUCOSE 222 MG/DL (70-104); MAGNESIUM 1.4 MG/DL (1.5-2.4); POTASSIUM 3.3 MMOL/L (3.5-5.1); SODIUM 136 MMOL/L (135-145); TOTAL CARBON DIOXIDE 30.5 MMOL/L (24-32); eCRCL 50 ML/MIN; eGFR 50 ML/MIN
[2024-01-06 08:07] LABS: ALBUMIN/GLOBULIN RATIO 1.5 (1.1-1.5); PHOSPHORUS 3.6 MG/DL (2.3-4.5); TOTAL PROTEIN 6.7 G/DL (6.4-8.2)
[2024-01-07] VITALS (13 sets, daily range): BP systolic 104–178; BP diastolic 45–84; PULSE 89–104; RESP 16–24; TEMP 97.3–101.4; O2SAT 91–100
[2024-01-07 07:22] LABS: BASOPHILS % (AUTO) 0.2 % (0-1); EOSINOPHILS # (AUTO) 0.3 X10'3 (0-0.9); EOSINOPHILS % (AUTO) 1.6 % (0-6); HEMATOCRIT 23.4 % (35.0-45.0); HEMOGLOBIN 7.4 g/dl (12.0-16.0); LYMPHOCYTES # (AUTO) 1.6 X10'3 (1.1-4.8); LYMPHOCYTES % (AUTO) 8.9 % (21-51); MEAN CORPUSCULAR HGB CONC 31.5 g/dL (33.0-36.5); MEAN CORPUSCULAR VOLUME 104.7 FL (78-98); MEAN PLATELET VOLUME 11.5 FL (7.4-10.4); MONOCYTES # (AUTO) 0.9 X10'3 (0-0.9); MONOCYTES % (AUTO) 5.1 % (2-12); NEUTROPHILS # (AUTO) 15.1 X10'3 (1.8-7.7); NEUTROPHILS % (AUTO) 84.2 % (42-75); PLATELET COUNT 171 X10'3 (140-440); RED BLOOD COUNT 2.24 X10'6 (4.20-5.60); WHITE BLOOD COUNT 17.9 X10'3 (4.5-11.0)
[2024-01-07 07:46] LABS: ALANINE AMINOTRANSFERASE 34 U/L (12-78); ALBUMIN 3.9 G/DL (3.4-5.0); ALKALINE PHOSPHATASE 359 IU/L (46-116); ANION GAP 10 (8-16); ASPARTATE AMINO TRANSFERASE 123 U/L (10-37); BILIRUBIN,TOTAL 7.1 MG/DL (0.1-1.0); BLOOD UREA NITROGEN 53 MG/DL (7-18); BUN/CREATININE RATIO 62.4 (10.0-20.0); CALCIUM 8.6 MG/DL (8.5-10.1); CHLORIDE 98 MMOL/L (99-107); CREATININE 0.85 MG/DL (0.40-0.90); GLUCOSE 252 MG/DL (70-104); MAGNESIUM 1.1 MG/DL (1.5-2.4); SODIUM 139 MMOL/L (135-145); TOTAL CARBON DIOXIDE 30.8 MMOL/L (24-32); eCRCL 68 ML/MIN; eGFR 71 ML/MIN
[2024-01-07 07:51] LABS: ALBUMIN/GLOBULIN RATIO 1.6 (1.1-1.5); PHOSPHORUS 3.3 MG/DL (2.3-4.5); TOTAL PROTEIN 6.4 G/DL (6.4-8.2)
[2024-01-07 08:26] LABS: LARGE PLATELETS FEW; PLATELET ESTIMATE NORMAL
[2024-01-07 08:27] LABS: ANISOCYTOSIS 1+; TARGET CELLS 2+
[2024-01-07 08:28] LABS: POLYCHROMASIA FEW
[2024-01-08] VITALS (14 sets, daily range): BP systolic 102–141; BP diastolic 48–75; PULSE 90–116; RESP 15–30; TEMP 97.2–99; O2SAT 90–97
[2024-01-08 07:22] LABS: ALANINE AMINOTRANSFERASE 38 U/L (12-78); ALBUMIN 3.6 G/DL (3.4-5.0); ALKALINE PHOSPHATASE 380 IU/L (46-116); ANION GAP 9 (8-16); ASPARTATE AMINO TRANSFERASE 115 U/L (10-37); BILIRUBIN,TOTAL 6.6 MG/DL (0.1-1.0); BLOOD UREA NITROGEN 47 MG/DL (7-18); BUN/CREATININE RATIO 52.8 (10.0-20.0); CALCIUM 8.6 MG/DL (8.5-10.1); CHLORIDE 101 MMOL/L (99-107); CREATININE 0.89 MG/DL (0.40-0.90); GLUCOSE 240 MG/DL (70-104); MAGNESIUM 1.3 MG/DL (1.5-2.4); POTASSIUM 4.1 MMOL/L (3.5-5.1); SODIUM 140 MMOL/L (135-145); TOTAL CARBON DIOXIDE 30.1 MMOL/L (24-32); eCRCL 65 ML/MIN; eGFR 67 ML/MIN
[2024-01-08 07:23] LABS: BASOPHILS % (AUTO) 0.3 % (0-1); EOSINOPHILS # (AUTO) 0.3 X10'3 (0-0.9); EOSINOPHILS % (AUTO) 1.5 % (0-6); HEMATOCRIT 24.3 % (35.0-45.0); HEMOGLOBIN 7.5 g/dl (12.0-16.0); LYMPHOCYTES # (AUTO) 2.3 X10'3 (1.1-4.8); LYMPHOCYTES % (AUTO) 12.6 % (21-51); MEAN CORPUSCULAR HEMOGLOBIN 32.2 PG (27.0-31.0); MEAN CORPUSCULAR HGB CONC 30.9 g/dL (33.0-36.5); MEAN CORPUSCULAR VOLUME 104.3 FL (78-98); MEAN PLATELET VOLUME 11.6 FL (7.4-10.4); MONOCYTES # (AUTO) 1.3 X10'3 (0-0.9); MONOCYTES % (AUTO) 7.4 % (2-12); NEUTROPHILS % (AUTO) 78.2 % (42-75); PLATELET COUNT 164 X10'3 (140-440); RED BLOOD COUNT 2.33 X10'6 (4.20-5.60); RED CELL DISTRIBUTION WIDTH 16.4 % (11.5-14.5); WHITE BLOOD COUNT 17.9 X10'3 (4.5-11.0)
[2024-01-08 07:24] LABS: ALBUMIN/GLOBULIN RATIO 1.2 (1.1-1.5); PHOSPHORUS 3.2 MG/DL (2.3-4.5); TOTAL PROTEIN 6.6 G/DL (6.4-8.2)
[2024-01-08 08:34] LABS: ANISOCYTOSIS 1+; LARGE PLATELETS FEW; PLATELET ESTIMATE NORMAL
[2024-01-08 08:35] LABS: GIANT PLATELET FEW; POLYCHROMASIA FEW; TARGET CELLS 2+
[2024-01-08 08:38] LABS: STOMATOCYTES FEW
[2024-01-08] MEDS: lactose-reduced food (Ensure Enlive) - 237ml bottle PO SCH (13:31)
[2024-01-08] MEDS: levoFLOXACIN-Levaquin 500mg/D5 100 ML IV SCH (17:59)
[2024-01-09] VITALS (13 sets, daily range): BP systolic 114–136; BP diastolic 47–67; PULSE 95–127; RESP 16–25; TEMP 97.6–98.5; O2SAT 90–95
[2024-01-09 07:14] LABS: BASOPHILS # (AUTO) 0.1 X10'3 (0-0.2); BASOPHILS % (AUTO) 0.2 % (0-1); EOSINOPHILS # (AUTO) 0.4 X10'3 (0-0.9); EOSINOPHILS % (AUTO) 1.7 % (0-6); HEMATOCRIT 25.1 % (35.0-45.0); LYMPHOCYTES # (AUTO) 2.3 X10'3 (1.1-4.8); LYMPHOCYTES % (AUTO) 10.5 % (21-51); MEAN CORPUSCULAR HEMOGLOBIN 32.8 PG (27.0-31.0); MEAN CORPUSCULAR HGB CONC 31.8 g/dL (33.0-36.5); MEAN CORPUSCULAR VOLUME 103.2 FL (78-98); MONOCYTES # (AUTO) 1.9 X10'3 (0-0.9); MONOCYTES % (AUTO) 8.7 % (2-12); NEUTROPHILS # (AUTO) 17.1 X10'3 (1.8-7.7); NEUTROPHILS % (AUTO) 78.9 % (42-75); PLATELET COUNT 167 X10'3 (140-440); RED BLOOD COUNT 2.44 X10'6 (4.20-5.60); WHITE BLOOD COUNT 21.6 X10'3 (4.5-11.0)
[2024-01-09 07:44] LABS: ALANINE AMINOTRANSFERASE 37 U/L (12-78); ALBUMIN 3.4 G/DL (3.4-5.0); ALKALINE PHOSPHATASE 380 IU/L (46-116); ANION GAP 9 (8-16); ASPARTATE AMINO TRANSFERASE 95 U/L (10-37); BILIRUBIN,TOTAL 5.9 MG/DL (0.1-1.0); BLOOD UREA NITROGEN 32 MG/DL (7-18); CALCIUM 8.8 MG/DL (8.5-10.1); CHLORIDE 103 MMOL/L (99-107); GLUCOSE 166 MG/DL (70-104); MAGNESIUM 1.3 MG/DL (1.5-2.4); SODIUM 139 MMOL/L (135-145); TOTAL CARBON DIOXIDE 27.1 MMOL/L (24-32); eCRCL 72 ML/MIN; eGFR 76 ML/MIN
[2024-01-09 07:52] LABS: PHOSPHORUS 3.4 MG/DL (2.3-4.5); TOTAL PROTEIN 6.7 G/DL (6.4-8.2)
[2024-01-09 08:45] LABS: LARGE PLATELETS FEW; PLATELET ESTIMATE NORMAL; POIKILOCYTOSIS 1+; POLYCHROMASIA FEW
[2024-01-09 08:46] LABS: ANISOCYTOSIS 1+; STOMATOCYTES 1+; TARGET CELLS 2+
[2024-01-10 02:00] VITALS: BP 97/58; PULSE 121; RESP 26; TEMP 100.4; O2SAT 94
[2024-01-10 06:00] VITALS: BP 118/57; PULSE 116; RESP 35; TEMP 97.5; O2SAT 92
[2024-01-10 07:42] LABS: BASOPHILS % (AUTO) 0.2 % (0-1); EOSINOPHILS # (AUTO) 0.3 X10'3 (0-0.9); EOSINOPHILS % (AUTO) 1.4 % (0-6); HEMATOCRIT 24.3 % (35.0-45.0); HEMOGLOBIN 7.6 g/dl (12.0-16.0); LYMPHOCYTES # (AUTO) 2.5 X10'3 (1.1-4.8); LYMPHOCYTES % (AUTO) 11.6 % (21-51); MEAN CORPUSCULAR HEMOGLOBIN 32.4 PG (27.0-31.0); MEAN CORPUSCULAR HGB CONC 31.1 g/dL (33.0-36.5); MEAN CORPUSCULAR VOLUME 104.4 FL (78-98); MEAN PLATELET VOLUME 11.9 FL (7.4-10.4); MONOCYTES # (AUTO) 1.6 X10'3 (0-0.9); MONOCYTES % (AUTO) 7.7 % (2-12); NEUTROPHILS # (AUTO) 16.8 X10'3 (1.8-7.7); NEUTROPHILS % (AUTO) 79.1 % (42-75); PLATELET COUNT 161 X10'3 (140-440); RED BLOOD COUNT 2.33 X10'6 (4.20-5.60); RED CELL DISTRIBUTION WIDTH 16.4 % (11.5-14.5); WHITE BLOOD COUNT 21.3 X10'3 (4.5-11.0)
[2024-01-10 07:59] VITALS: PULSE 98; RESP 16; O2SAT 93
[2024-01-10 08:00] VITALS: RESP 18; O2SAT 95
[2024-01-10 08:03] LABS: ALANINE AMINOTRANSFERASE 40 U/L (12-78); ALBUMIN 3.1 G/DL (3.4-5.0); ALKALINE PHOSPHATASE 389 IU/L (46-116); ANION GAP 9 (8-16); ASPARTATE AMINO TRANSFERASE 109 U/L (10-37); BILIRUBIN,TOTAL 5.3 MG/DL (0.1-1.0); BLOOD UREA NITROGEN 27 MG/DL (7-18); BUN/CREATININE RATIO 27.6 (10.0-20.0); CALCIUM 8.3 MG/DL (8.5-10.1); CHLORIDE 103 MMOL/L (99-107); CREATININE 0.98 MG/DL (0.40-0.90); GLUCOSE 198 MG/DL (70-104); MAGNESIUM 1.2 MG/DL (1.5-2.4); POTASSIUM 4.2 MMOL/L (3.5-5.1); SODIUM 138 MMOL/L (135-145); TOTAL CARBON DIOXIDE 26.1 MMOL/L (24-32); eCRCL 59 ML/MIN; eGFR 60 ML/MIN
[2024-01-10 08:06] VITALS: PULSE 98; RESP 18
[2024-01-10 08:12] LABS: ALBUMIN/GLOBULIN RATIO 0.9 (1.1-1.5); PHOSPHORUS 4.3 MG/DL (2.3-4.5); TOTAL PROTEIN 6.5 G/DL (6.4-8.2)
[2024-01-10 10:02] LABS: ANISOCYTOSIS 1+; LARGE PLATELETS FEW; PLATELET ESTIMATE NORMAL; POLYCHROMASIA FEW
[2024-01-10 10:03] LABS: STOMATOCYTES 1+; TARGET CELLS 1+
[2024-01-10 11:00] VITALS: BP 137/57; PULSE 93; RESP 18; TEMP 97.7; O2SAT 95
[2024-01-10] MEDS ORDERED: LEVO-65 PO (14:52)
== END 2024-01-10 17:11 | disposition home health service (06) | DRG 871 ==
LOC: ER 09:04 → ED HOLD 13:13 → PCU 3S 22:20 → ORTHO 4S 12-27 20:50 → PCU 3S 12-31 13:07
PROVIDERS: ADMIT Internal Medicine; ATTEND Internal Medicine
PROC: BW211ZZ Computerized Tomography (CT Scan) of Abdomen and Pelvis using Low Osmolar Contrast (ICD-10-PCS; principal; 2023-12-19)
PROC: 05HF33Z Insertion of Infusion Device into Left Cephalic Vein, Percutaneous Approach (ICD-10-PCS; 2023-12-26)
PROC: B54NZZA Ultrasonography of Left Upper Extremity Veins, Guidance (ICD-10-PCS; 2023-12-26)
PROC: BW211ZZ Computerized Tomography (CT Scan) of Abdomen and Pelvis using Low Osmolar Contrast (ICD-10-PCS; 2023-12-27)
DX: A41.9 Sepsis, unspecified organism (principal); E43 Unspecified severe protein-calorie malnutrition; G93.41 Metabolic encephalopathy; E87.29 Other acidosis; N17.9 Acute kidney failure, unspecified; K92.2 Gastrointestinal hemorrhage, unspecified; K76.6 Portal hypertension; E87.1 Hypo-osmolality and hyponatremia; D53.9 Nutritional anemia, unspecified; D63.8 Anemia in other chronic diseases classified elsewhere; E11.9 Type 2 diabetes mellitus without complications; E83.42 Hypomagnesemia; Z66 Do not resuscitate; E83.51 Hypocalcemia; E87.5 Hyperkalemia; E87.6 Hypokalemia; F41.9 Anxiety disorder, unspecified; K70.11 Alcoholic hepatitis with ascites; R29.6 Repeated falls; K76.0 Fatty (change of) liver, not elsewhere classified; Z53.20 Procedure and treatment not carried out because of patient's decision for unspecified reasons; F10.20 Alcohol dependence, uncomplicated; K70.30 Alcoholic cirrhosis of liver without ascites; K52.9 Noninfective gastroenteritis and colitis, unspecified; E83.39 Other disorders of phosphorus metabolism; Y90.9 Presence of alcohol in blood, level not specified; R34 Anuria and oliguria; E88.09 Other disorders of plasma-protein metabolism, not elsewhere classified; Z88.1 Allergy status to other antibiotic agents; Z88.0 Allergy status to penicillin; Z79.84 Long term (current) use of oral hypoglycemic drugs; Z88.8 Allergy status to other drugs, medicaments and biological substances; Z63.5 Disruption of family by separation and divorce; Z68.28 Body mass index [BMI] 28.0-28.9, adult
CPT/HCPCS: 36410; 36415; 36600; 71045; 74177; 76700; 76705; 76937; 80053; 80061; 81001; 81025; 82103; 82140; 82248; 82272; 82306; 82330; 82550; 82652; 82803; 82947; 82948; 83036; 83605; 83690; 83735; 83880; 83930; 83970; 84100; 84132; 84145; 84484; 85007; 85008; 85018; 85025; 85610; 85651; 85730; 86704; 86705; 86706; 86709; 86803; 86885; 86900; 86901; 87040; 87045; 87046; 87081; 87088; 87324; 87340; 87449; 87522; 89055; 93005; 93306; 93975; 94640; 94760; 97110; 97116; 97161; 97530; 97535; 99285; A4314; A4615; A4620; A6213; A6250; A6253; A6258; A6449; A6455; C1751; G0378; J0610; J0696; J0744; J1644; J1815; J1940; J1956; J2060; J2270; J2405; J2470; J2919; J3420; J3475; J3480; J3490; J7030; J7040; J7060; J7070; P9047; Q9967